=== PATIENT | female | born 1945 | race Caucasian/White ===

== ENCOUNTER 2016-10-27 18:12 | Emergency (ER) | payer OTHER ==
[~2016-10-27 18:12] MED LIST: ALPRAZOLAM0.5 MG PO; ASPIRIN ADULT L81 MG PO; AZASAN75 MG PO; CARVEDILOL6.25 MG PO; FLONASE AL50 MCG/ACT IN; ISOSORBIDE MONO30 MG PO; METFORMIN HCL500 MG PO; NICOTINE T14 MG/24 H TOP; NORCO1 TA1 PO; PRAVASTATIN SOD10 MG PO; PREDNISONE5 MG PO; PRINIVIL5 MG PO; TACROLIMUS0.5 MG PO
--- NOTE | 2016-10-27 19:42 | DIAGNOSTIC IMAGING REPORT ---
PROCEDURE: CT HEAD WITHOUT CONTRAST INDICATION: SYNCOPE TECHNIQUE: Axial CT images were acquired through the head. Coronal and sagittal reformations were created. COMPARISON: 09/14/2014 FINDINGS: Minor, age appropriate cerebral cortical atrophy. Mild hypodensity in the periventricular and subcortical white matter, slightly progressed. Slight prominence of the ventricular system, stable. No intracranial hemorrhage or extraaxial fluid collections. There is no mass, mass effect or midline shift. The gasca-white matter differentiation is normal. There is no edema. Moderate calcific atherosclerosis of the intracranial internal carotid arteries. The calvarium is intact. The paranasal sinuses and mastoid air cells are normally aerated. The extracranial soft tissues and orbits are normal. IMPRESSION: 1. No CT evidence of acute intracranial process. 2. Age related involutional and white matter changes. These changes have mildly progressed since the previous study. 3. Findings discussed with Dr. Bass at [address] scans at this facility use dose modulation, iterative reconstruction, and/or weight-based dosing when appropriate to reduce radiation dose to as low as reasonably achievable.
--- NOTE | 2016-10-27 19:44 | DIAGNOSTIC IMAGING REPORT ---
PROCEDURE: XR CHEST 1 VIEW INDICATION: CHEST PAIN TECHNIQUE: Single view chest. 1918 hours. COMPARISON: 07/08/2016 FINDINGS: Stable heart size, within normal limits. Heavy aortic arch atherosclerosis. No central venous congestion. Clear lungs. Parenchymal stranding in the right lower lung, similar compared to the prior study. No new consolidations, effusion, or pneumothorax. Intact osseous structures. IMPRESSION: 1. Atelectasis/scarring at the right medial lung base. 2. Stable heart size without acute findings of CHF.
--- NOTE | 2016-10-27 21:32 | ED NURSING NOTES ---
Clinical Report - Nurses [facility] [address] [place] [address] 10/27/2016 18:13 [id number] Triage time 18:23 Oct 27 2016. Acuity: LEVEL 3. Alert. SIMI COMA SCORE: Simi Coma Scale: 15- eyes open spontaneously (4); best verbal response- oriented x 4 (5); best motor response- obeys commands (6). --18:24 Yao Knapp R.N. 18:23 10/27/16. BP: 160/101. HR: 90. RR: 16. O2 saturation: 99% on room air. Temp: 98.2 F. Pain level now: 0/10. --18:24 Yao Knapp R.N. Acuity: LEVEL 3. Chief Complaint: FAINTING (HBP). --18:32 Yao Knapp R.N. 18:29 10/27/16. BP: 173/93. HR: 88. RR: 16. O2 saturation: 99% on room air. Temp: 98.1 F. Pain level now: 0/10. --18:32 Yao Knapp R.N. Weight: 51.2 kg stated. Height/Length: 63 inches Per Patient. BMI: 20. --18:24 Yao Knapp R.N. Medications ALPRAZolam Oral 0.5 mg, 3x a day as needed. Aspirin Oral (Tablet Chewable 81 mg) 1 tablet, daily. AzaTHIOprine Oral (Tablet 50 mg) 1-1/2 tablets, daily. AzaTHIOprine Oral (Tablet 75 mg), daily. Carvedilol Phosphate ER Oral 6.25 mg. Hydrocodone-Acetaminophen Oral 5 mg, 4x a day as needed. Lisinopril Oral 5 mg, daily. Pravastatin Sodium Oral 10 mg, at bedtime. PredniSONE Oral 5 mg, daily. Tacrolimus Oral (Capsule 0.5 mg) 1 capsule, BID. --18:28 Yao Knapp R.N. Allergies PCN. Definite Severe(swelling) --18:28 Yao Knapp R.N. History Arrived by private vehicle. Historian: patient. Accompanied by daughter. Primary physician (Luis). ( HBP 190/130 at home today. Pt got out of chair and collapsed on the floor.). Onset. (about 1 1/2 hours ago hours ago). She has had weakness. 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 PAST MEDICAL HX: Type II diabetes mellitus treated with diet. Hypertension. Heart disease: myocardial infarction. Immunizations: status is unknown. The patient is post-menopausal. SOCIAL HX: Former smoker, end date 09/2016. No alcohol use or drug use. No infectious disease exposure. ABUSE ASSESSMENT: No report of abuse. FALL RISK ASSESSMENT: Fall risk assessment completed. No fall risk identified. NUTRITIONAL RISK ASSESSMENT: The nutritional risk assessment revealed no deficiencies. FUNCTIONAL ASSESSMENT: Functional assessment: no impairments noted. LEARNING NEEDS ASSESSMENT: The learning needs assessment revealed no barriers. SKIN INTEGRITY ASSESSMENT: Skin integrity risk assessment completed. No skin integrity risk identified. --18:32 Yao Knapp R.N. PROBLEMS: Abnormal Test. Pneumonia. Congestive Heart Failure. Hypertension. Renal Failure. Diabetes Mellitus. UTI - Urinary Tract Infection. Immunizations. Borderline diabetes. --18:28 Yao Knapp R.N. ADDITIONAL SURGERIES: Appendectomy. Cholecystectomy. Renal transplant. --18:28 Yao Knapp R.N. Interventions ID band on patient. To treatment room. --18:24 Yao Knapp R.N. ID band on patient. To room. --18:32 Yao Knapp R.N. PHYSICAL ASSESSMENT Ambulatory to room. GENERAL / NEURO / PSYCH: Alert. Oriented X 4. HEENT: No facial asymmetry noted. RESPIRATORY: Chest nontender. Breath sounds within normal limits. CVS: Normal sinus rhythm noted. Capillary refill less than 2 seconds. Pulses within normal limits. GI / : Abdomen soft and nontender. SKIN: Skin intact. Skin is warm and dry. Normal skin turgor. --18:33 Yao Knapp R.N. NURSING PROGRESS NOTES Patient gowned. Reassurance given. Patient identifiers checked. Call light placed in reach. Side rails up x 1. Bed placed in lowest position. Brakes of bed on. Patient ready for evaluation- chart flagged and ED physician notified. --18:33 Yao Knapp R.N. EKG time: (18:46 PM). EKG was performed by a tech and shown to the ED physician. --18:55 Regan Doyle 19:49 10/27/2016 Site #1 started via IV in the right forearm with an 20g angiocath, with aseptic technique and good blood return; one attempt. Blood drawn: rainbow set. Labeled in the presence of the patient and sent to the lab. Saline lock flushed with 10 mL saline. --20:04 Yao Knapp R.N. 20:05 10/27/2016 Started bag #1 1000 mL IV Fluids IV NS (Saline); at 1000 mL/hr over 60 minute(s) via site #1 via IV pump. Allergies verified and confirmed 5 rights. IV patency established. IV site checked: no pain, redness, or swelling. IV flushed thoroughly pre- and post-medication administration. --20:06 Yao Knapp R.N. 20:15 10/27/16. Patient ID band checked for patient name, birthdate and medical record number: patient confirmed. Instructions provided to collect clean catch urine and patient verbalized understanding. Clean catch urine collected with return of yellow-colored clear urine; odor is normal; sample sent to lab for urinalysis and culture. Specimen labeled in the presence of the patient. --20:22 Yao Knapp R.N. 21:12 10/27/2016 IV Fluids IV NS Discontinued: bag #1 completed. Total amount infused: 1000 mL. IV patency established. IV site checked: no pain, redness, or swelling. IV flushed thoroughly. --21:12 Almita Zazueta R.N. Cardiac rhythm: normal sinus rhythm. Reassurance given. --21:22 Almita Zazueta R.N. 21:21 10/27/16. BP: 130/98. HR: 86. RR: 19. O2 saturation: 95%. Pain level now: 0/10. --21:22 Almita Zazueta R.N. DISPOSITION / DISCHARGE 21:47 10/27/2016 Site #1 removed upon discharge. Catheter intact. Manual pressure applied. --21:47 Almita Zazueta R.N. Cardiac rhythm: normal sinus rhythm. Departure time: 2148 PM. Condition at departure: improved and stable. The goals identified in the patient's plan of care were met. No learning barriers present. Discharge instructions provided and reviewed with the patient. Patient and family verbalized understanding. Written instructions provided in Maltese. No medication instructions, treatment instructions or referrals given to the patient. The patient was discharged by the physician. She was discharged home and accompanied by family. She left the Emergency Department in a wheelchair and via private vehicle. Family member driving. SIMI COMA SCORE: [place] Coma Scale: 15- eyes open spontaneously (4); best verbal response- oriented x 4 (5); best motor response- obeys commands (6). --21:48 Almita Zazueta R.N. 21:42 10/27/16. BP: 156/66. HR: 82. RR: 15. O2 saturation: 99% on room air. Temp: 97.6 F (oral). Pain level now: 0/10. --21:48 Almita Zazueta R.N. Locked/Released at 10/27/2016 21:48 by Almita Zazueta R.N.
--- NOTE | 2016-10-27 21:32 | ED CLINICAL REPORT ---
Clinical Report - Physicians/Mid Levels [facility] [address] [place] [address] 10/27/2016 18:13 Patient: TONI SANTA Time Seen: 18:34; initial patient contact. Arrived- By private vehicle. Historian- patient. HISTORY OF PRESENT ILLNESS The patient recovered at the scene. Chief Complaint: SINGLE SYNCOPAL EPISODE. This occurred just prior to arrival. Event was not witnessed. The patient felt faint. No seizure activity, incontinence or apnea noted. At time of event, she had just stood up. The patient had preceding symptoms of light-headedness. Had a single episode. The episode was brief. Currently she has no symptoms. No injuries noted. Similar symptoms previously: None. Recent medical care: Not recently seen/assessed. REVIEW OF SYSTEMS No headache, chest pain, palpitations, abdominal pain or vomiting. No diarrhea or difficulty breathing. She has had dizziness. All systems otherwise negative, except as recorded above. PAST HISTORY ( Abnormal Test. Pneumonia. Congestive Heart Failure. Hypertension. Renal Failure. Diabetes Mellitus. UTI - Urinary Tract Infection. Borderline diabetes. SURGERIES: Appendectomy. Cholecystectomy. Renal transplant.). SOCIAL HISTORY Former smoker. No alcohol use or drug use. ADDITIONAL NOTES The nursing notes have been reviewed with agreement regarding the chief complaint, PMH and patient medications and allergies. PHYSICAL EXAM Vital Signs: 10/27/2016 18:23 BP: 160/101. HR: 90. RR: 16. O2 saturation: 99%. Temp: 98.2 F. Pain level now: 0/10. Have been reviewed. Hypertensive. Heart rate normal. Respiratory rate normal. Temperature normal. Oxygen saturation normal. Appearance: Alert. No acute distress. Eyes: Pupils equal, round and reactive to light. No nystagmus. Extraocular movements normal. ENT: Dry mucous membranes present. Neck: Normal inspection. Neck supple. CVS: Normal heart rate and rhythm. Heart sounds normal. Respiratory: No respiratory distress. Breath sounds normal. Abdomen: Soft and nontender. No organomegaly. Skin: Poor skin turgor, mild. Skin warm and dry. Normal skin color. No rash. Extremities: No calf tenderness. No lower extremity edema. Neuro: Alert. Oriented X 3. Mood/affect normal. Speech normal. Cranial nerves normal (as tested). No cerebellar findings. No motor deficit. No sensory deficit. LABS, X-RAYS, AND EKG EKG: EKG time: (1845). No acute process. No acute ischemia. Normal sinus rhythm. Rate: 82. Normal P waves. Normal MARLEEN. Normal QRS complex. Wide QRS- intraventricular conduction delay. RBBB (incomplete). Normal QT and QTc. Mild T wave inversion in lead V5 and V6. The study has been interpreted contemporaneously by me. The study has been independently viewed by me. The EKG appears to be a good tracing. Interpretation time: 1845. Chest X-ray: (1. Atelectasis/scarring at the right medial lung base. 2. Stable heart size without acute findings of CHF.). Views: AP. Technique: good. The X-rays were independently viewed by me, interpreted by the radiologist and discussed with the radiologist. A comparison with prior films reveals that the findings are unchanged. Interpretation time: 20:19. Laboratory Tests: CBC w Diff: (QUINCY: 10/27/2016 18:45) ( MsgRcvd 10/27/2016 19:10) Final results Test Result Flag Units (Reference) WHITE BLOOD COUNT 7.0 K/uL (4.5-11.5) RED BLOOD COUNT 3.81 L M/uL (4.00-5.20) HEMOGLOBIN 12.1 gm/dL (12.0-16.0) HEMATOCRIT 36.1 % (36.0-46.0) MEAN CELL VOLUME 95 fL (80-100) MEAN CORPUSCULAR HGB 32 pg (26-34) MEAN CORPUSCULAR HGB CONC 33 g/dL (31-37) RED CELL DISTRIBUTION WIDTH 14.2 % (11.6-14.8) PLATELET COUNT 225 K/uL (150-400) NEUTROPHIL % 66.9 % (50-75) LYMPH % 22.4 L % (25-40) MONO % 8.8 % (3-14) EOSINOPHIL % 1.5 % (0-4) BASOPHIL % 0.4 % (0-2) CHEM 13 PANEL: (QUINCY: 10/27/2016 18:45) ( MsgRcvd 10/27/2016 19:30) Final results Test Result Flag Units (Reference) GLUCOSE 120 H mg/dL (70-110) BUN 24 H mg/dL (7-18) CREATININE 1.1 mg/dL (0.6-1.3) Estimated GFR 51.75 mL/min Estimated GFR- >60 mL/min Note: Persistent reduction over 3 months in eGFR<60 mL/min/1.73 m2 defines CKD. Patients with eGFR values>=60 mL/min/1.73 m2 may also have CKD if evidence ofpersistent proteinuria. Additional information may be foundat www.kidney.org. SODIUM 141 mmol/L (136-145) POTASSIUM 4.4 mmol/L (3.5-5.1) CHLORIDE 105 mmol/L (98-107) CARBON DIOXIDE 29 mmol/L (21-32) CALCIUM 9.2 mg/dL (8.5-10.1) TOTAL PROTEIN 7.4 g/dL (6.4-8.2) ALBUMIN 3.7 g/dL (3.3-5.0) BILIRUBIN, TOTAL 0.4 mg/dL (0.0-1.0) ALKALINE PHOSPHATASE 60 U/L (46-116) AST (SGOT) 11 L U/L (15-37) ALT (SGPT) 9 L U/L (12-78) MAGNESIUM 2.1 mg/dL (1.8-2.4) CPK 59 U/L (24-260) TROPONIN I <0.05 ng/mL (0.00-1.5) TROPONIN REFERENCE RANGE:<0.1 NEGATIVE0.1-1.5 INDETERMINANT>1.5 POSITIVE . PROGRESS AND PROCEDURES Course of Care: Nl renal fxn. Expressed the improtance of adequate hydration to keep kidneys functioning properly, especially due to the fact she has undergone a renal transplant. 10/27/2016 21:21 BP: 130/98. HR: 86. RR: 19. O2 saturation: 95%. Pain level now: 0/10. Vital Signs: have been reviewed. Hypertensive. Heart rate normal. Respiratory rate normal. Oxygen saturation normal. Disposition: Discharged home in good and improved condition. Condition: good. CLINICAL IMPRESSION Vasovagal syncope .12 lead EKG performed. INSTRUCTIONS Follow a low salt diet. Drink plenty of fluids. Your Current Medications: CONTINUE TAKING THE FOLLOWING MEDICATIONS: ALPRAZolam Oral : 0.5 mg 3x a day, prn. Aspirin Oral : Tablet Chewable 81 mg, 1 tablet daily. AzaTHIOprine Oral : Tablet 50 mg, 1-1/2 tablets daily. AzaTHIOprine Oral : Tablet 75 mg, daily. Carvedilol Phosphate ER Oral : 6.25 mg. Hydrocodone-Acetaminophen Oral : 5 mg 4x a day, prn. Lisinopril Oral : 5 mg daily. Pravastatin Sodium Oral : 10 mg at bedtime. PredniSONE Oral : 5 mg daily. Tacrolimus Oral : Capsule 0.5 mg, 1 capsule BID. Follow-up: Follow up with your doctor in about two days. Call for an appointment. Blood pressure screening was not performed during this visit because the patient has an active diagnosis of hypertension. (Electronically signed by Tomas Bass Dr. 10/28/2016 20:55)
--- NOTE | 2016-10-27 21:32 | ED ORDER SUMMARY ---
..... Patient: TONI SANTA OrderSheet [facility] VisitID: [id number] [place] [address] 71y, F Registration Date/Time: 10/27/2016 ORDER SHEET Weight: 51.2 kg (stated) Allergies: PCN GENERAL ORDERS: Ships Equipment Engineer (Continuous) (Syncopal Epidsode) (18:34 10/27/2016 JRomanelli R.N. verbal order read back to Marguerite Monterroso) (20:04 JRomanelli R.N.) CMP Urgent (18:35 10/27/2016 JRaaronelli R.N. verbal order read back to Marguerite Monterroso) (Ack 18:42 Viji) (18:43 JRomanelli R.N.) (Cancelled: Other18:44 JRomanelli R.N.) Pulse oximeter (18:35 10/27/2016 Kacy R.N. verbal order read back to Marguerite Monterroso) (20:04 JRomanelli R.N.) EKG - ER Stat (18:35 10/27/2016 Kacy R.N. verbal order read back to Marguerite Monterroso) (Ack 18:42 Viji) (19:12 LTapper) Cardiac Panel Stat (18:44 10/27/2016 Josieelli R.N. verbal order read back to Marguerite Monterroso) (Ack 18:54 Viji) (20:04 JRomanelli R.N.) Chest 1V Urgent (19:10 10/27/2016 Marguerite Monterroso) (Ack 19:14 Viji) (19:30 MCampbell) CT Head wo Cont Urgent (19:10 10/27/2016 Marguerite Monterroso) (Ack 19:14 Viji) (19:30 MCampbell) UA-Culture if indicated Urgent (19:10 10/27/2016 Marguerite Monterroso) (Ack 19:14 Viji) (20:04 JRomanelli R.N.) MEDICATION ORDERS: IV FLUIDS: IV Saline Lock (18:35 10/27/2016 Kacy R.N. verbal order read back to Marguerite Monterroso) (20:04 Kacy Chou) IV NS : initial bolus none -, then 1000 mL/hr for X1 (NOW) (19:31 10/27/2016 Marguerite Monterroso) (20:06 Kacy Chou) ORDER SHEET NOTES: [Electronically signed by Almita Zazueta R.N. (21:48 10/27/2016)] [Electronically signed by Tomas Bass Dr. (20:55 10/28/2016)] [Electronically locked/signed by Almita Zazueta R.N. (21:48 10/27/2016)]
--- NOTE | 2016-10-27 21:32 | ED ORDER SUMMARY ---
..... Patient: TONI SANTA OrderSheet [facility] VisitID: [id number] [place] [address] 71y, F Registration Date/Time: 10/27/2016 ORDER SHEET Weight: 51.2 kg (stated) Allergies: PCN GENERAL ORDERS: Addressograph Operator (Continuous) (Syncopal Epidsode) (18:34 10/27/2016 JRomanelli R.N. verbal order read back to Marguerite Monterroso) (20:04 JRomanelli R.N.) CMP Urgent (18:35 10/27/2016 JRaaronelli R.N. verbal order read back to Marguerite Monterroso) (Ack 18:42 Viji) (18:43 JRomanelli R.N.) (Cancelled: Other18:44 JRomanelli R.N.) Pulse oximeter (18:35 10/27/2016 Kacy R.N. verbal order read back to Marguerite Monterroso) (20:04 JRomanelli R.N.) EKG - ER Stat (18:35 10/27/2016 Kacy R.N. verbal order read back to Marguerite Monterroso) (Ack 18:42 Viji) (19:12 LTapper) Cardiac Panel Stat (18:44 10/27/2016 Josieelli R.N. verbal order read back to Marguerite Monterroso) (Ack 18:54 Viji) (20:04 JRomanelli R.N.) Chest 1V Urgent (19:10 10/27/2016 Marguerite Monterroso) (Ack 19:14 Viji) (19:30 MCampbell) CT Head wo Cont Urgent (19:10 10/27/2016 Marguerite Monterroso) (Ack 19:14 Viji) (19:30 MCampbell) UA-Culture if indicated Urgent (19:10 10/27/2016 Marguerite Monterroso) (Ack 19:14 Viji) (20:04 JRomanelli R.N.) MEDICATION ORDERS: IV FLUIDS: IV Saline Lock (18:35 10/27/2016 Kacy R.N. verbal order read back to Marguerite Monterroso) (20:04 Kacy Chou) IV NS : initial bolus none -, then 1000 mL/hr for X1 (NOW) (19:31 10/27/2016 Marguerite Monterroso) (20:06 Kacy Chou) ORDER SHEET NOTES: [Electronically signed by Almita Zazueta R.N. (21:48 10/27/2016)] [Electronically signed by Tomas Bass Dr. (20:55 10/28/2016)] [Electronically locked/signed by Almita Zazueta R.N. (21:48 10/27/2016)]
--- NOTE | 2016-10-28 20:55 | ED MED RECONCILIATION SUMMARY ---
Patient: TONI SANTA Medication Reconciliation Report [facility] VisitID: [id number] [address] [place] [address] 71y, F Registration Date/Time: 10/27/2016 Weight: 51.2 kg Height/Length: 63 in. BMI: 20.0 ALLERGIES: PCN The patient's Home Medications are listed below: CONTINUE TAKING THE FOLLOWING MEDICATIONS: ALPRAZolam Oral 0.5 mg, 3x a day Aspirin Oral (81 mg) 1 tablet, daily AzaTHIOprine Oral (50 mg) 1-1/2 tablets, daily AzaTHIOprine Oral (75 mg), daily Carvedilol Phosphate ER Oral 6.25 mg Hydrocodone-Acetaminophen Oral 5 mg, 4x a day Lisinopril Oral 5 mg, daily Pravastatin Sodium Oral 10 mg, at bedtime PredniSONE Oral 5 mg, daily Tacrolimus Oral (0.5 mg) 1 capsule, BID The source(s) of the original Home Medication information: Not obtained. The following Medications were given to the patient in the Emergency Department: IV NS IV Fluids bolus 0, then 1000 mL/hr, administered: 10/27/2016 8:05:00 PM The following Medications were prescribed to the patient: None.
--- NOTE | 2016-10-28 20:55 | ED DISCHARGE INSTRUCTIONS ---
Patient: TONI SANTA General Instructions [facility] VisitID: [id number] [place] [address] 71y, F Registration Date/Time: 10/27/2016 Vasovagal syncope .12 lead EKG performed. INSTRUCTIONS Follow a low salt diet. Drink plenty of fluids. Your Current Medications: CONTINUE TAKING THE FOLLOWING MEDICATIONS: ALPRAZolam Oral : 0.5 mg 3x a day, prn. Aspirin Oral : Tablet Chewable 81 mg, 1 tablet daily. AzaTHIOprine Oral : Tablet 50 mg, 1-1/2 tablets daily. AzaTHIOprine Oral : Tablet 75 mg, daily. Carvedilol Phosphate ER Oral : 6.25 mg. Hydrocodone-Acetaminophen Oral : 5 mg 4x a day, prn. Lisinopril Oral : 5 mg daily. Pravastatin Sodium Oral : 10 mg at bedtime. PredniSONE Oral : 5 mg daily. Tacrolimus Oral : Capsule 0.5 mg, 1 capsule BID. Follow-up: Follow up with your doctor in about two days. Call for an appointment. Blood pressure screening was not performed during this visit because the patient has an active diagnosis of hypertension. ADDITIONAL INFORMATION Fainting:Vagal Reaction Fainting (syncope) is a temporary loss of consciousness ("passing out"). It occurs when blood flow to the brain is reduced. Your doctor believes that your episode was due to a vagal reaction. This condition is not a sign of serious disease. A vagal reaction is a reflex response that causes the pulse to slow down or the blood vessels to dilate. This causes the blood pressure to fall, reducing the blood flow to the brain if you are standing or sitting. That results in dizziness, near-fainting or fainting. Lying down usually stops the reaction within 60 seconds. This reflex response can occur during sudden fear, severe pain, emotional stress, overexertion, overheating, hunger, nausea or vomiting, prolonged standing or standing up after sitting or lying for a long time. Home Care: 1) Rest today and resume your normal activities as soon as you are feeling back to normal. 2) If you become light-headed or dizzy, lie down immediately or sit with your head lowered between your knees. Follow Up with your doctor as instructed. Get Prompt Medical Attention if any of the following occur: -- Another fainting spell occurs, which is not explained by the common causes listed above -- Chest, arm, neck, jaw, back or abdominal pain -- Shortness of breath -- Severe headache or seizure -- Blood in vomit, stools (black or red color) -- Unexpected vaginal bleeding -- Palpitations (very rapid or very slow or irregular heart beat) -- Signs of stroke: Weakness of an arm or leg or one side of the face Difficulty with speech or vision Extreme drowsiness, confusion, dizziness or fainting Low-Salt Diet (2 Grams/Day) This diet eliminates foods that are high in salt and restricts the amount of salt that you cook with. It is most often used for patients with high blood pressure, edema (fluid retention), kidney, liver, and heart disease. Table salt contains the mineral sodium. The body needs sodium to work normally. But too much sodium can make your health problems worse. Your healthcare provider is recommending a low-salt (also called low-sodium) diet for you. Your total daily allowance of salt (sodium) is 2 grams. This equals 2,000 milligrams (mg). It is less than 1 teaspoon of table salt. This means you can have only about 700 mg of sodium at each meal. When you cook, limit the salt you use. And if you can avoid using salt, even better. Do not add salt at the table. So, throw away the saltshaker! When shopping, read the package labels. Salt is often called sodium on the label. Choose foods that are Salt-Free, Low Salt, or Very Low Salt. Note that foods with Reduced Salt may notlower your salt intake enough. Beverages OK: Tea, coffee, carbonated beverages, juices AVOID: Flavored international coffees, electrolyte replacement drinks, sports beverages Bread & Cereals OK: All regular bread, rolls, cereals, cakes; low-salt crackers, matzoh crackers AVOID: Salted crackers, pretzels, popcorn; venezuelan toast, pancakes, muffins Fruits & Desserts OK: Ice cream, frozen yogurt, juice bars, gelatin (Jell-O), cookies and pies, sugar, honey, jelly, hard candy AVOID: Most pies, cakes and cookies prepared or processed with salt, instant pudding Meats OK: All fresh meat, fish, poultry, low-salt tuna AVOID: Smoked, pickled, brine-cured, or salted meats or fish. Thisincludes mccracken, chipped beef, corned beef, hot dogs, luncheon meats, ham, kosher meats, salt pork, sausage, canned tuna, salted codfish, smokedsalmon, rivers, sardines, or anchovies. Dairy OK: Milk, chocolate milk, hot chocolate mix; eggs, Low Salt cheeses, yogurt, egg substitute AVOID: Processed cheese, cheese spreads, Roquefort, Camembert, and cottage cheese, buttermilk, instant breakfast drink Beans, Potatoes & Pasta OK: Dry beans, split peas, lentils, potatoes, rice, macaroni, noodles, spaghetti without added salt AVOID: Potato chips, tortilla chips, and similar products Soups OK: Low-salt soups and broths made with allowed foods AVOID: Bouillon cubes, soups with smoked or salted meats, regular soup and broth Vegetables OK: Most are okay; low-salt tomato and vegetable juices AVOID: Sauerkraut and other brine-soaked vegetables, pickles and other pickled vegetables, tomato juice, olives Seasoning & Spices OK: Most seasonings are okay. Good substitutes for salt include: fresh herb blends, Tabasco, lemon, garlic, peters, vinegar, dry mustard, parsley, cilantro, horseradish, tomato paste, regular margarine, mayonnaise, butter, cream cheese, vegetable oil, cream, low-salt salad dressing and gravy AVOID: Regular ketchup, relishes, pickles, soy sauce, teriyaki sauce, Worcestershire sauce, BBQ sauce, tartar sauce, meat tenderizer, chili sauce, regular gravy, regular salad dressing You have been given the following additional information: Syncope, Vasovagal Diet, Low Salt (2Gm) (Electronically signed by Tomas Bass Dr. 10/28/2016 20:55)
--- NOTE | 2016-10-28 20:55 | ED MAR SUMMARY ---
..... Medication Administration Record [facility] [address] [place] [address] Patient: TONI SANTA Visit ID: [id number] 71y, F Weight: 51.2 kg Height/Length: 63 in BMI: 20 ALLERGIES: PCN Start 20:05 10/27/2016 Yao Knapp RAugustNAugust, Stop 21:12 10/27/2016 Almita Zazueta RAugustNAugust Medication Administered: IV NS (SALINE), Dose: IV Fluids over 60 minute(s), Rate: 1000 mL/hr, Dispensed: 1000 mL bag, Site: #1 right forearm. Medication Ordered: IV NS : initial bolus none -, then 1000 mL/hr for X1 (NOW).
--- NOTE | 2016-10-28 20:55 | ED MAR SUMMARY ---
..... Medication Administration Record [facility] [address] [place] [address] Patient: TONI SANTA Visit ID: [id number] 71y, F Weight: 51.2 kg Height/Length: 63 in BMI: 20 ALLERGIES: PCN Start 20:05 10/27/2016 Yao Knapp RAugustNAugust, Stop 21:12 10/27/2016 Almita Zazueta RAugustNAugust Medication Administered: IV NS (SALINE), Dose: IV Fluids over 60 minute(s), Rate: 1000 mL/hr, Dispensed: 1000 mL bag, Site: #1 right forearm. Medication Ordered: IV NS : initial bolus none -, then 1000 mL/hr for X1 (NOW).
--- NOTE | 2016-10-28 20:55 | ED MED RECONCILIATION SUMMARY ---
Patient: TONI SANTA Medication Reconciliation Report [facility] VisitID: [id number] [address] [place] [address] 71y, F Registration Date/Time: 10/27/2016 Weight: 51.2 kg Height/Length: 63 in. BMI: 20.0 ALLERGIES: PCN The patient's Home Medications are listed below: CONTINUE TAKING THE FOLLOWING MEDICATIONS: ALPRAZolam Oral 0.5 mg, 3x a day Aspirin Oral (81 mg) 1 tablet, daily AzaTHIOprine Oral (50 mg) 1-1/2 tablets, daily AzaTHIOprine Oral (75 mg), daily Carvedilol Phosphate ER Oral 6.25 mg Hydrocodone-Acetaminophen Oral 5 mg, 4x a day Lisinopril Oral 5 mg, daily Pravastatin Sodium Oral 10 mg, at bedtime PredniSONE Oral 5 mg, daily Tacrolimus Oral (0.5 mg) 1 capsule, BID The source(s) of the original Home Medication information: Not obtained. The following Medications were given to the patient in the Emergency Department: IV NS IV Fluids bolus 0, then 1000 mL/hr, administered: 10/27/2016 8:05:00 PM The following Medications were prescribed to the patient: None.
== END 2016-10-27 21:40 | disposition home or self-care (01) ==
LOC: ED SRH 18:12
DX: R55 Syncope and collapse (principal); E11.22 Type 2 diabetes mellitus with diabetic chronic kidney disease; N18.9 Chronic kidney disease, unspecified; I12.9 Hypertensive chronic kidney disease with stage 1 through stage 4 chronic kidney disease, or unspecified chronic kidney disease; Z94.0 Kidney transplant status; I50.9 Heart failure, unspecified; Z79.82 Long term (current) use of aspirin; Z79.891 Long term (current) use of opiate analgesic; Z79.52 Long term (current) use of systemic steroids; Z79.899 Other long term (current) drug therapy; Z88.0 Allergy status to penicillin
CPT/HCPCS: 90004; 90100; 90616; 92610; 92720; 95059

== ENCOUNTER 2016-11-01 20:28 | Inpatient (IN) | payer OTHER ==
[~2016-11-01] VITALS: Ht 160 cm; Wt 53.2 kg
--- NOTE | 2016-11-01 22:15 | ED CLINICAL REPORT ---
Clinical Report - Physicians/Mid Levels [facility] [address] [place] [address] 11/01/2016 20:32 Patient: TONI SANTA Time Seen: 20:39; initial patient contact. Arrived- By ambulance. Historian- patient and EMS personnel. CPT: Critical care < 74 min plus (#[id number]) and 30-74 min plus (#[id number]). EKG interpretation (#[id number]). HISTORY OF PRESENT ILLNESS Chief Complaint: DYSPNEA and HISTORY OF CONGESTIVE HEART FAILURE. This started today and is still present. The dyspnea is severe and is worsened by exertion, is improved by rest and is improved with oxygen. No cough, sputum production, fever or chest pain or discomfort. No calf pain or foot swelling. She has had wheezing, dyspnea on exertion and anxiety. Similar symptoms previously: Milder. Diagnosis: bronchitis. Recent medical care: Not recently seen/assessed. REVIEW OF SYSTEMS The patient has had weakness, but not had weight loss. No eye irritation, sore throat or throat, nasal discharge or sinus drainage. No nausea, vomiting, abdominal pain, diarrhea or black stools. No fainting episodes, difficulty with urination or urination or skin rash or rash. No enlarged lymph nodes, hematuria, diabetic symptoms or easy bruising. All systems otherwise negative, except as recorded above. PAST HISTORY Vasovagal Syncope. Heart Disease. Pneumonia. Congestive Heart Failure. Hypertension. Renal Failure. Diabetes Mellitus. UTI - Urinary Tract Infection. Borderline diabetes. Appendectomy. AV Fistula, Left Arm. Cholecystectomy. Renal transplant. Medications: ALPRAZolam Oral 0.5 mg, 3x a day as needed. Aspirin Oral (Tablet Chewable 81 mg) 1 tablet, daily. AzaTHIOprine Oral (Tablet 50 mg) 1-1/2 tablets, daily. AzaTHIOprine Oral (Tablet 75 mg), daily. Carvedilol Phosphate ER Oral 6.25 mg. Hydrocodone-Acetaminophen Oral 5 mg, 4x a day as needed. Lisinopril Oral 5 mg, daily. Pravastatin Sodium Oral 10 mg, at bedtime. PredniSONE Oral 5 mg, daily. Tacrolimus Oral (Capsule 0.5 mg) 1 capsule, BID. Allergies: PCN. Definite Severe(swelling). SOCIAL HISTORY Former smoker. No alcohol use or drug use. ADDITIONAL NOTES The nursing notes have been reviewed. PHYSICAL EXAM Vital Signs: 11/01/2016 20:37 BP: 226/147. HR: 122. RR: 24. O2 saturation: 100%. Temp: 97.5 F. Figueroa-Harrell pain scale: 4/10. Appearance: Alert. Anxious. Patient in moderate distress. Eyes: Eyes normal inspection. ENT: Nose normal. Pharynx normal. Uvula midline. Neck: Normal inspection. JVD to the angle of the jaw present at 45 degrees. Neck supple. CVS: Tachycardia. Heart sounds normal. Pulses normal. Respiratory: Moderate respiratory distress (On CPAP). Decreased air movement. Moderate rales present in the bases bilaterally. Abdomen: Soft and nontender. Back: Normal inspection. Skin: Skin warm. Normal skin color. No rash. Extremities: Extremities exhibit normal ROM. No calf tenderness. No lower extremity edema. Neuro: Oriented X 3. No motor deficit. No sensory deficit. Reflexes normal. LABS, X-RAYS, AND EKG EKG: Normal sinus rhythm. Normal P waves. Normal QRS complex. Non-specific ST segment / T wave abnormalities. EKG unchanged when compared with prior EKG. The study has been interpreted contemporaneously. The study has been independently viewed by me. The EKG appears to be a good tracing. Chest X-ray: Congestive heart failure present. Pulmonary edema present. Vascular congestion present. Views: AP (portable). Technique: good. The X-rays were independently viewed by me. Laboratory Tests: CBC w Manual Diff: (QUINCY: 11/02/2016 05:20) ( MsgRcvd 11/02/2016 06:19) Final results Test Result Flag Units (Reference) WHITE BLOOD COUNT NO REFLEX 10.1 K/uL (4.5-11.5) RED BLOOD COUNT 3.60 L M/uL (4.00-5.20) HEMOGLOBIN 11.3 L gm/dL (12.0-16.0) HEMATOCRIT 33.7 L % (36.0-46.0) MEAN CELL VOLUME 94 fL (80-100) MEAN CORPUSCULAR HGB 32 pg (26-34) MEAN CORPUSCULAR HGB CONC 34 g/dL (31-37) RED CELL DISTRIBUTION WIDTH 14.4 % (11.6-14.8) PLATELET COUNT 218 K/uL (150-400) POLY % 74 % (50-75) BAND % 6 % (0-8) LYMPH 17 L % (25-40) MONO 3 % (3-14) EOSINOPHIL % 0 % (0-4) BASOPHIL % 0 % (0-2) METAMYELOCYTE % 0 % (0-1) MYELOCYTE 0 % (0-1) OTHER CELL TYPE 0 HYPOCHROMIA 1+ [id number]: (QUINCY: 11/02/2016 05:20) ( [facility] 11/02/2016 06:03) Final results Test Result Flag Units (Reference) CHOLESTEROL 184 mg/dL (140-200) TRIGLYCERIDES 138 mg/dL (30-200) HDL CHOLESTEROL 63 mg/dL (32-96) LDL,CALCULATED 94 mg/dL Normal range for LDL by direct measurement is 66-178The LDL reported is a calculated value and may approximatea direct measurement. CHOL/HDL 2.9 LDL/HDL 1.5 CORONARY RISK FACTOR 0.5 (0.4-1.0) [id number]: (QUINCY: 11/02/2016 05:20) ( [facility] 11/02/2016 06:04) Final results Test Result Flag Units (Reference) CALCULATED A1C 6.3 H % (4.5-6.2) The [place] [employer] recommends that aprimary goal of therapy should be a HbA1c of <7% and thatphysicians should reevaluate the treatment regimen inpatients with HbA1c values consistently >8%. ESTIMATED AVERAGE GLUCOSE 134 mg/dL BNP: (QUINCY: 11/02/2016 05:20) ( [facility] 11/02/2016 06:12) Final results Test Result Flag Units (Reference) B-TYPE NATRIURETIC PEPTIDE 1870 H pg/ml (5-100) BMP: (QUINCY: 11/02/2016 05:20) ( MsgRcvd 11/02/2016 06:02) Final results Test Result Flag Units (Reference) GLUCOSE 93 mg/dL (70-110) BUN 29 H mg/dL (7-18) CREATININE 1.0 mg/dL (0.6-1.3) Estimated GFR 57.76 mL/min Estimated GFR- >60 mL/min Note: Persistent reduction over 3 months in eGFR<60 mL/min/1.73 m2 defines CKD. Patients with eGFR values>=60 mL/min/1.73 m2 may also have CKD if evidence ofpersistent proteinuria. Additional information may be foundat www.kidney.org. SODIUM 143 # mmol/L (136-145) POTASSIUM 3.7 # mmol/L (3.5-5.1) CHLORIDE 105 mmol/L (98-107) CARBON DIOXIDE 25 mmol/L (21-32) CALCIUM 8.9 mg/dL (8.5-10.1) Troponin-I: (QUINCY: 11/02/2016 05:20) ( [facility] 11/02/2016 06:02) Final results Test Result Flag Units (Reference) TROPONIN I 0.14 ng/mL (0.00-1.5) TROPONIN REFERENCE RANGE:<0.1 NEGATIVE0.1-1.5 INDETERMINANT>1.5 POSITIVE UA-Culture if indicated: (QUINCY: 11/01/2016 21:16) ( [facility] 11/01/2016 22:20) Final results Test Result Flag Units (Reference) URINE COLOR YELLOW URINE APPEARANCE CLEAR URINE GLUCOSE NEGATIVE (NEGATIVE) URINE BILIRUBIN NEGATIVE (NEGATIVE) URINE KETONE NEGATIVE (NEGATIVE) URINE SPECIFIC GRAVITY 1.015 (1.010-1.030) URINE PH 6.0 (5.0-8.0) URINE PROTEIN NEGATIVE (NEGATIVE) URINE UROBILINOGEN 0.2 EU/dL (0.2-1.0) URINE NITRITE NEGATIVE (NEGATIVE) URINE BLOOD NEGATIVE (NEGATIVE) URINE LEUK ESTERASE NEGATIVE (NEGATIVE) URINE RBC 0-1 rbc/hpf (0-1) URINE WBC 0-1 wbc/hpf (0-1) URINE EPITHELIAL CELLS 0-1 EPI/hpf (0-5) URINE BACTERIA NONE SEEN (NONE SEEN) URINE COMMENT CULT NOT INDICATED URINE CULTURES ARE SET-UP BASED ON THE FOLLOWING CRITERIA:POSITIVE NITRITEPOSITIVE LEUKOCYTE ESTERASEGREATER THAN 10 WHITE BLOOD CELLSMODERATE (2+) OR GREATER BACTERIA CBC w Diff: (QUINCY: 11/01/2016 20:50) ( [facility] 11/01/2016 21:07) Final results Test Result Flag Units (Reference) WHITE BLOOD COUNT 17.8 # H K/uL (4.5-11.5) RED BLOOD COUNT 4.00 M/uL (4.00-5.20) HEMOGLOBIN 12.6 gm/dL (12.0-16.0) HEMATOCRIT 38.4 % (36.0-46.0) MEAN CELL VOLUME 96 fL (80-100) MEAN CORPUSCULAR HGB 32 pg (26-34) MEAN CORPUSCULAR HGB CONC 33 g/dL (31-37) RED CELL DISTRIBUTION WIDTH 14.2 % (11.6-14.8) PLATELET COUNT 278 K/uL (150-400) NEUTROPHIL % 68.3 % (50-75) LYMPH % 26.5 % (25-40) MONO % 4.5 % (3-14) EOSINOPHIL % 0.4 % (0-4) BASOPHIL % 0.3 % (0-2) [id number]: (QUINCY: 11/01/2016 20:50) ( [facility] 11/01/2016 21:25) Final results Test Result Flag Units (Reference) D-DIMER QUANTITATIVE 3.37 H ug/mLFEU (0.27-0.52) The primary value of this quantitative assay relates toits negative predictive value (i.e. exclusion) of pulmonaryembolism/deep vein thrombosis/DIC.Elevated levels of d-dimer may also occur with:, age, cancer, inflammation, liver disease,post-op, infection, hematoma, coronary disease, peripheralarteriopathy, bleeding disorders and thrombolytic treatment.Results should be correlated with other clinical andradiological data.Testing Methodology: Latex Immunoassay Troponin-I: (QUINCY: 11/01/2016 23:30) ( [facility] 11/02/2016 00:01) Final results Test Result Flag Units (Reference) TROPONIN I 0.16 ng/mL (0.00-1.5) TROPONIN REFERENCE RANGE:<0.1 NEGATIVE0.1-1.5 INDETERMINANT>1.5 POSITIVE Lactate, Serum: (QUINCY: 11/01/2016 20:50) ( [facility] 11/01/2016 21:46) Final results Test Result Flag Units (Reference) LACTIC ACID 1.3 mmol/L (0.4-2.0) [id number]: (QUINCY: 11/01/2016 20:50) ( [facility] 11/01/2016 22:08) Final results Test Result Flag Units (Reference) PROCALCITONIN <0.5 ng/mL (0-0.5) PCT Concentration: Interpretation : Risk/option for action PCT <=0.5 ng/mL : Systemic : Low risk forinfection(sepsis): progression to severeis not likely. : systemic infection.Local bacterial : CAUTION-PCT levelsinfection is : below 0.5 ng/mL do notpossible. : exclude an infection,because localizedinfections (withoutsystemic signs) may beassociated with suchlow levels. If PCT ismeasured very earlyafter a bacterialchallenge (usually <6hours), these valuesmay still be low. Inthis case PCT shouldbe re-assessed 6-24hours later. PCT >0.5 and : Systemic infection: Moderate risk for<= 2 ng/mL : (sepsis) is : progression to severepossible, but : systemic infection.other conditions : The patient should beare known to : closely monitoredelevate PCT. : both clinically andby re-assessing PCTwithin 6-24 hours. PCT > 2 ng/mL : Systemic infection: High risk for(sepsis) is likely: progression to severeunless other : systemic infection.causes are known. : PCT >= 10 ng/mL : Important systemic: High likelihood ofinflammatory : severe sepsis orresponse, almost : septic shock.exclusively due to:severe bacterial :sepsis or septic :shock. : BNP: (QUINCY: 11/01/2016 20:50) ( MsgRcvd 11/01/2016 21:26) Final results Test Result Flag Units (Reference) B-TYPE NATRIURETIC PEPTIDE 1760 H pg/ml (5-100) CHEM 13 PANEL: (QUINCY: 11/01/2016 20:50) ( MsgRcvd 11/01/2016 21:22) Final results Test Result Flag Units (Reference) GLUCOSE 303 H mg/dL (70-110) BUN 33 H mg/dL (7-18) CREATININE 1.5 H mg/dL (0.6-1.3) Estimated GFR 36.18 mL/min Estimated GFR- 43.85 mL/min Note: Persistent reduction over 3 months in eGFR<60 mL/min/1.73 m2 defines CKD. Patients with eGFR values>=60 mL/min/1.73 m2 may also have CKD if evidence ofpersistent proteinuria. Additional information may be foundat www.kidney.org. SODIUM 134 L mmol/L (136-145) POTASSIUM 5.1 mmol/L (3.5-5.1) CHLORIDE 103 mmol/L (98-107) CARBON DIOXIDE 24 mmol/L (21-32) CALCIUM 8.7 mg/dL (8.5-10.1) TOTAL PROTEIN 7.6 g/dL (6.4-8.2) ALBUMIN 3.8 g/dL (3.3-5.0) BILIRUBIN, TOTAL 0.3 mg/dL (0.0-1.0) ALKALINE PHOSPHATASE 72 U/L (46-116) AST (SGOT) 16 U/L (15-37) ALT (SGPT) 17 U/L (12-78) MAGNESIUM 2.0 mg/dL (1.8-2.4) CPK 71 U/L (24-260) TROPONIN I <0.05 ng/mL (0.00-1.5) TROPONIN REFERENCE RANGE:<0.1 NEGATIVE0.1-1.5 INDETERMINANT>1.5 POSITIVE ABG: (QUINCY: 11/01/2016 21:28) ( MsgRcvd 11/01/2016 21:38) Final results Test Result Flag Units (Reference) FIO2 45 % (20-101) ABG MODE OF DELIVERY CPAP MODIFIED NELL TEST POSITIVE? YES ABG VENT MODE CPAP ABG PATIENT RESP RATE 20 /MIN ARTERIAL BLOOD GAS SITE RR ARTERIAL BLOOD GAS pH 7.27 L (7.35-7.45) ABG PCO2 54.7 H mmHg (35-45) ABG PO2 137.0 H mmHg (60.0-80.0) ABG BASE EXCESS -2.1 H mmol/L (-6.0--6.0) ABG HCO3 25.0 mmol/L (20.0-26.0) ABG TCO2 26.6 mmol/L (24.0-30.0) ABG VwMoN8c 123.2 H mmHg (7.0-14.0) *NOTE: Normal rangeis based on aFIO2 of 21% ABG SAT O2 99.2 % (95.1-100.0) ABG TOTAL HEMOGLOBIN 12.3 g/dL (12.0-16.0) ABG O2 HEMOGLOBIN 96.0 % (95.0-100.0) ABG CARBOXYHEMOGLOBIN 3.1 H % (0.5-1.5) ABG METHEMOGLOBIN 0.1 L % (0.4-1.5) ABG RHEMOGLOBIN 0.8 % . PROGRESS AND PROCEDURES Course of Care: Pt arrives on CPAP as EMS notes sat of 85% at the scene. Pt sat improved to 95% on CPAP. ABG shows respiratory failure and poor ventilation so pt changed over to BiPAP. Ptimproved clinically with less respiratory distress and stable saturation. CHF is a cause of dyspnea. Lasix 40 mg IV for CHF NTG paste 1" for CHF and HTN. HTN continued to exacerbate CHF so lopressor 5 mg IV given. THis helped mildly. Hydralazine 10 mg IV given and brought BP down to 136\\80 with improvement in respiratory distress. BP slowly climbed so an additional 5mg hydralazine given with stable BP. Albuterol HHN with mild improvement Pt with elevated D-dimer and potential PE. With elevated renal studies and kidney transplant will defer CTA, bolus with heparin and order V/Q scan. Heparin 5,000 unit bolus then 800 per hour. Discussed with . Who requests abdi and EKG. Will admit to the ICU. PT now resting. Critical care performed (120 minutes). Time is exclusive of separately billable procedures. Time includes: direct patient care, patient reassessment, coordination of patient care, interpretation of data (laboratory data, pulse oximetry, arterial blood gases, chest xrays, prior electrocardiograms and cardiac output measurements), review of patient's medical records, medical consultation, family consultation regarding treatment decisions and documentation of patient care. Procedures included in critical care time: peripheral IV placement and phlebotomy- see progress notes. Procedures excluded from critical care time: electrocardiography. Discussed case with on-call health care provider, (Remedios). Reviewed test results. Agreed upon treatment plan and decision to admit. Health care provider will see patient in hospital. Patient/family counseled. Old medical records ordered. Disposition orders written. Disposition: Admitted to the Critical Care Unit. CLINICAL IMPRESSION Acute CHF Acute respiratory failure Renal insufficeincy with kidney transplant. Hypoxia Diabetes with uncontrolled hyperglycemia. (Electronically signed by Yobany Ramirez MD 11/02/2016 22:11)
--- NOTE | 2016-11-01 22:15 | ED ORDER SUMMARY ---
..... Patient: TONI SANTA OrderSheet [facility] VisitID: [id number] [address] [place] [address] 71y, F Registration Date/Time: 11/01/2016 ORDER SHEET Weight: 55.1 kg (measured) Allergies: PCN GENERAL ORDERS: Chest 1V Urgent (20:40 11/01/2016 Marguerite Monterroso) (Ack 20:44 IJurca ER Tech1) (20:55 Tal) UA-Culture if indicated Urgent (20:40 11/01/2016 Marguerite Monterroso) (Ack 20:44 IJurca ER Tech1) (22:03 CFalkner R.N.) Cardiac Panel Stat (20:40 11/01/2016 Marguerite Monterroso) (Ack 20:44 IJurca ER Tech1) (21:45 CFalkner R.N.) BNP Urgent (20:40 11/01/2016 Marguerite Monterroso) (Ack 20:44 IJurca ER Tech1) (21:45 CFalkner R.N.) D-Dimer Urgent (20:40 11/01/2016 Marguerite Monterroso) (Ack 20:44 IJurca ER Tech1) (21:45 CFalkner R.N.) Lactate, Serum Urgent (21:25 11/01/2016 Gaby BOLTON) (Ack 21:29 IJurca ER Tech1) (21:45 CFalkner R.N.) PCT (Procalcitonin) Urgent (21:25 11/01/2016 Gaby BOLTON) (Ack 21:29 IJurca ER Tech1) (21:45 CFalkner R.N.) ABG (G) Urgent (21:28 11/01/2016 Gaby BOLTON) (Ack 21:29 IJurca ER Tech1) (22:03 CFalkner R.N.) EKG - ER Stat (22:37 11/01/2016 Gaby BOLTON) (Ack 22:39 IJurca ER Tech1) (22:54 IJurca ER Tech1) EKG - ER Stat (22:40 11/01/2016 Gaby BOLTON) (Cancelled: Other22:41 Gaby BOLTON) Mares Catheter (22:40 11/01/2016 Gaby BOLTON) (Ack 22:54 IJurca ER Tech1) (23:05 SSambjasbir R.N.) MEDICATION ORDERS: NitroGLYCERIN Paste Topical 1 in. (NOW, to CW) (21:03 11/01/2016 Marguerite Monterroso) (21:11 SSambjasbir R.N.) Albuterol Neb Tx 5 mg (HHN) (22:39 11/01/2016 Gaby BOLTON) IV FLUIDS: Lopressor IV 5 mg (HIGH ALERT MEDICATION, NOW) (21:04 11/01/2016 Marguerite Monterroso) (21:06 Silviambjasbir R.N.) Lasix IV 40 mg (NOW) (21:04 11/01/2016 Marguerite Monterroso) (21:07 Silviambjasbir R.N.) Hydralazine IV 10 mg (NOW) (21:28 11/01/2016 Gaby BOLTON) (21:37 SSambou R.N.) Heparin IV : initial bolus 5,000 units, then 800 units per hour for 4h (NOW); Routine (21:35 11/01/2016 Gaby BOLTON) (22:17 SSambou R.N.) Hydralazine IV 5 mg IV (NOW) (23:09 11/01/2016 Gaby BOLTON) (23:20 SSambou R.N.) ORDER SHEET NOTES: [Electronically signed by Sheriff José Antonio Weiss (01:46 11/02/2016)] [Electronically signed by Yobany Ramirez MD (22:11 11/02/2016)] [Electronically locked/signed by Sheriff José Antonio Weiss (01:46 11/02/2016)]
--- NOTE | 2016-11-01 22:15 | ED NURSING NOTES ---
Clinical Report - Nurses [facility] [address] [place] [address] 11/01/2016 20:32 [id number] Triage time 20:37. Acuity: LEVEL 2. Chief Complaint: SHORTNESS OF BREATH and DIFFICULTY BREATHING. SIMI COMA SCORE: Simi Coma Scale: 15- eyes open spontaneously (4); best verbal response- oriented x 4 (5); best motor response- obeys commands (6). --20:45 Owen Parson R.N. 20:37 11/01/16. BP: 226/147 taken on the right arm. HR: 122. RR: 24. O2 saturation: 100%. Temp: 97.5 F (oral). Figueroa-Harrell pain scale: 4/10. Additional comments: on CPAP with high flow oxygen. --20:45 Owen Parson R.N. Weight: 55.1 kg measured. Height/Length: 63 inches Per Patient. BMI: 21.5. --21:54 Yao Knapp R.N. Medications ALPRAZolam Oral 0.5 mg, 3x a day as needed. Aspirin Oral (Tablet Chewable 81 mg) 1 tablet, daily. AzaTHIOprine Oral (Tablet 50 mg) 1-1/2 tablets, daily. AzaTHIOprine Oral (Tablet 75 mg), daily. Carvedilol Phosphate ER Oral 6.25 mg. Hydrocodone-Acetaminophen Oral 5 mg, 4x a day as needed. Lisinopril Oral 5 mg, daily. Pravastatin Sodium Oral 10 mg, at bedtime. PredniSONE Oral 5 mg, daily. Tacrolimus Oral (Capsule 0.5 mg) 1 capsule, BID. --20:38 Owen Parson R.N. Allergies PCN. Definite Severe(swelling) --20:38 Owen Parson R.N. History Arrived by EMS. Historian: EMS. Unaccompanied. ( brought in by EMS on CPAP). 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 --20:45 Owen Parson R.N. PROBLEMS: Vasovagal Syncope. Heart Disease. Abnormal Test. Pneumonia. Congestive Heart Failure. Hypertension. Renal Failure. Diabetes Mellitus. UTI - Urinary Tract Infection. Immunizations. Borderline diabetes. --20:39 Owen Parson R.N. ADDITIONAL SURGERIES: Appendectomy. AV Fistula, Left Arm. Cholecystectomy. Renal transplant. --20:39 Owen Parson R.N. Interventions ID and allergy band on patient. To treatment room. --20:45 Owen Parson R.N. PHYSICAL ASSESSMENT To room via stretcher. GENERAL / NEURO / PSYCH: Alert. Oriented X 4. Appears anxious and in distress. HEENT: Mucous membranes are pink. RESPIRATORY: Severe respiratory distress. She is unable to speak (on cpap, speaking is difficult). Accessory muscle use. Decreased breath sounds. ( diminished breath sounds). CVS: ( sinus tach on monitor, JVD present). Capillary refill less than 2 seconds. SKIN: Skin is warm and dry. --20:48 Owen Parson R.N. NURSING PROGRESS NOTES Oxygen administered. secured entrance monitor, pulse oximeter and NIBP monitor placed on patient. Patient gowned. Two patient identifiers checked. Call light placed in reach. Side rails up x 2. Bed placed in lowest position. Brakes of bed on. Patient ready for evaluation- chart flagged. ED physician notified. ( RT is present and Dr Bass has performed exam). Patient waiting for evaluation. --20:49 Owen Parson R.N. 20:51 11/01/2016 Site #1 started via IV in the right forearm with an 20g angiocath, with aseptic technique and good blood return; one attempt. Blood drawn: rainbow set and cultures x2. Labeled in the presence of the patient. Saline lock flushed with 10 mL saline. --21:06 Sheriff Weiss R.N. 21:06 11/01/2016 Lopressor (Metoprolol Tartrate) IVP 5 mg given over 1 minute(s) via site #1. Allergies verified and confirmed 5 rights. IV patency established site checked: no pain, redness, or swelling flushed thoroughly pre- and post-medication administration. IVP given by RN. --21:06 Sheriff Weiss R.N. 21:07 11/01/2016 Lasix IVP 40 mg given over 2 minute(s) via site #1. Allergies verified and confirmed 5 rights. IV patency established site checked: no pain, redness, or swelling flushed thoroughly pre- and post-medication administration. IVP given by RN. --21:07 Sheriff Weiss R.N. 21:11 11/01/2016 NITROGLYCERIN PASTE Topical Paste 1 inch. Applied to the left chest. Allergies verified and confirmed 5 rights. --21:11 Sheriff Weiss R.N. 21:37 11/01/2016 Hydralazine IVP 10 mg given over 30 second(s) via site #1. Allergies verified and confirmed 5 rights. IV patency established site checked: no pain, redness, or swelling flushed thoroughly pre- and post-medication administration. IVP given by RN. --21:37 Sheriff Weiss R.N. 21:54 11/01/16. Patient ID band checked for patient name and birthdate: patient confirmed. Instructions provided to collect clean catch urine and patient verbalized understanding. Catheterized urine collected with return of yellow-colored clear urine; odor is normal; sample sent to lab for urinalysis and culture. Specimen labeled in the presence of the patient (by Brittani Lowery RN). --21:54 Yao Knapp R.N. 22:17 11/01/2016 Heparin IVP 5000 unit given over 2 minute(s) via site #1. Allergies verified and confirmed 5 rights. IV patency established site checked: no pain, redness, or swelling flushed thoroughly pre- and post-medication administration. IVP given by RN. --22:17 Sheriff Weiss R.N. EKG time: (2248). EKG was ordered, performed by a tech and shown to the ED physician. --22:55 Oracio Villafuerte, ER Tech1 23:05 11/01/2016 Albuterol Neb TX 1 unit dose given. Given by the respiratory therapist. Allergies verified and confirmed 5 rights. --23:05 Sheriff Weiss R.N. 22:00 11/01/16. BP: 135/78. HR: 78. RR: 18. O2 saturation: 100%. Temp: 98.5 F. Pain level now: 11/24. --23:08 Sheriff Weiss R.N. 23:20 11/01/2016 Hydralazine IVP 5 mg given over 30 second(s) via site #1. Allergies verified and confirmed 5 rights. IV patency established site checked: no pain, redness, or swelling flushed thoroughly pre- and post-medication administration. IVP given by RN. --23:20 Sheriff Weiss R.N. 14 fr abdi catheter placed. Reason for indwelling catheter: critical need to monitor intake and output. During procedure hand hygiene observed and sterile equipment and aseptic technique used. Return of 800 mL yellow-colored clear urine; attached to bedside drainage bag positioned below the bladder. She tolerated procedure well. --23:40 Sheriff Weiss R.N. 00:58 11/02/16. BP: 152/74. HR: 81. RR: 20. O2 saturation: 99% at 2 liters/minute. --00:59 Sheriff Weiss R.N. Intake & Output TOTAL OUTPUT: 800 mL. Urine, with return of 800 mL yellow-colored clear urine; attached to bedside drainage bag. --23:47 Sheriff Weiss R.N. DISPOSITION / DISCHARGE Admitted (1:30 AM). Transported via stretcher by nurse and respiratory therapist with monitor and O2. Report was given to a nurse in person. All questions were answered. Report was acknowledged. Patient's personal items include: shirt and pants; items were placed in belongings bag and transported with the patient. Collection of belongings was witnessed by nurse and hospital insurance clerk. --01:41 Sheriff Weiss R.N. 01:30 11/02/16. BP: 140/70. HR: 81. RR: 16. O2 saturation: 99%. Pain level now: 09/26. --01:44 Sheriff Weiss R.N. Locked/Released at 11/02/2016 1:46 by Sheriff Weiss R.N.
--- NOTE | 2016-11-01 22:15 | ED ORDER SUMMARY ---
..... Patient: TONI SANTA OrderSheet [facility] VisitID: [id number] [address] [place] [address] 71y, F Registration Date/Time: 11/01/2016 ORDER SHEET Weight: 55.1 kg (measured) Allergies: PCN GENERAL ORDERS: Chest 1V Urgent (20:40 11/01/2016 Marguerite Monterroso) (Ack 20:44 IJurca ER Tech1) (20:55 Tal) UA-Culture if indicated Urgent (20:40 11/01/2016 Marguerite Monterroso) (Ack 20:44 IJurca ER Tech1) (22:03 CFalkner R.N.) Cardiac Panel Stat (20:40 11/01/2016 Marguerite Monterroso) (Ack 20:44 IJurca ER Tech1) (21:45 CFalkner R.N.) BNP Urgent (20:40 11/01/2016 Marguerite Monterroso) (Ack 20:44 IJurca ER Tech1) (21:45 CFalkner R.N.) D-Dimer Urgent (20:40 11/01/2016 Marguerite Monterroso) (Ack 20:44 IJurca ER Tech1) (21:45 CFalkner R.N.) Lactate, Serum Urgent (21:25 11/01/2016 Gaby BOLTON) (Ack 21:29 IJurca ER Tech1) (21:45 CFalkner R.N.) PCT (Procalcitonin) Urgent (21:25 11/01/2016 Gaby BOLTON) (Ack 21:29 IJurca ER Tech1) (21:45 CFalkner R.N.) ABG (G) Urgent (21:28 11/01/2016 Gaby BOLTON) (Ack 21:29 IJurca ER Tech1) (22:03 CFalkner R.N.) EKG - ER Stat (22:37 11/01/2016 Gaby BOLTON) (Ack 22:39 IJurca ER Tech1) (22:54 IJurca ER Tech1) EKG - ER Stat (22:40 11/01/2016 Gaby BOLTON) (Cancelled: Other22:41 Gaby BOLTON) Mares Catheter (22:40 11/01/2016 Gaby BOLTON) (Ack 22:54 IJurca ER Tech1) (23:05 SSambjasbir R.N.) MEDICATION ORDERS: NitroGLYCERIN Paste Topical 1 in. (NOW, to CW) (21:03 11/01/2016 Marguerite Monterroso) (21:11 SSambjasbir R.N.) Albuterol Neb Tx 5 mg (HHN) (22:39 11/01/2016 Gaby BOLTON) IV FLUIDS: Lopressor IV 5 mg (HIGH ALERT MEDICATION, NOW) (21:04 11/01/2016 Marguerite Monterroso) (21:06 Silviambjasbir R.N.) Lasix IV 40 mg (NOW) (21:04 11/01/2016 Marguerite Monterroso) (21:07 Silviambjasbir R.N.) Hydralazine IV 10 mg (NOW) (21:28 11/01/2016 Gaby BOLTON) (21:37 SSambou R.N.) Heparin IV : initial bolus 5,000 units, then 800 units per hour for 4h (NOW); Routine (21:35 11/01/2016 Gaby BOLTON) (22:17 SSambou R.N.) Hydralazine IV 5 mg IV (NOW) (23:09 11/01/2016 Gaby BOLTON) (23:20 SSambou R.N.) ORDER SHEET NOTES: [Electronically signed by Sheriff José Antonio Weiss (01:46 11/02/2016)] [Electronically signed by Yobany Ramirez MD (22:11 11/02/2016)] [Electronically locked/signed by Sheriff José Antonio Weiss (01:46 11/02/2016)]
--- NOTE | 2016-11-01 22:15 | ED NURSING NOTES ---
Clinical Report - Nurses [facility] [address] [place] [address] 11/01/2016 20:32 [id number] Triage time 20:37. Acuity: LEVEL 2. Chief Complaint: SHORTNESS OF BREATH and DIFFICULTY BREATHING. SIMI COMA SCORE: Simi Coma Scale: 15- eyes open spontaneously (4); best verbal response- oriented x 4 (5); best motor response- obeys commands (6). --20:45 Owen Parson R.N. 20:37 11/01/16. BP: 226/147 taken on the right arm. HR: 122. RR: 24. O2 saturation: 100%. Temp: 97.5 F (oral). Figueroa-Harrlel pain scale: 4/10. Additional comments: on CPAP with high flow oxygen. --20:45 Owen Parson R.N. Weight: 55.1 kg measured. Height/Length: 63 inches Per Patient. BMI: 21.5. --21:54 Yao Knapp R.N. Medications ALPRAZolam Oral 0.5 mg, 3x a day as needed. Aspirin Oral (Tablet Chewable 81 mg) 1 tablet, daily. AzaTHIOprine Oral (Tablet 50 mg) 1-1/2 tablets, daily. AzaTHIOprine Oral (Tablet 75 mg), daily. Carvedilol Phosphate ER Oral 6.25 mg. Hydrocodone-Acetaminophen Oral 5 mg, 4x a day as needed. Lisinopril Oral 5 mg, daily. Pravastatin Sodium Oral 10 mg, at bedtime. PredniSONE Oral 5 mg, daily. Tacrolimus Oral (Capsule 0.5 mg) 1 capsule, BID. --20:38 Owen Parson R.N. Allergies PCN. Definite Severe(swelling) --20:38 Owen Parson R.N. History Arrived by EMS. Historian: EMS. Unaccompanied. ( brought in by EMS on CPAP). 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 --20:45 Owen Parson R.N. PROBLEMS: Vasovagal Syncope. Heart Disease. Abnormal Test. Pneumonia. Congestive Heart Failure. Hypertension. Renal Failure. Diabetes Mellitus. UTI - Urinary Tract Infection. Immunizations. Borderline diabetes. --20:39 Owen Parson R.N. ADDITIONAL SURGERIES: Appendectomy. AV Fistula, Left Arm. Cholecystectomy. Renal transplant. --20:39 Owen Parson R.N. Interventions ID and allergy band on patient. To treatment room. --20:45 Owen Parson R.N. PHYSICAL ASSESSMENT To room via stretcher. GENERAL / NEURO / PSYCH: Alert. Oriented X 4. Appears anxious and in distress. HEENT: Mucous membranes are pink. RESPIRATORY: Severe respiratory distress. She is unable to speak (on cpap, speaking is difficult). Accessory muscle use. Decreased breath sounds. ( diminished breath sounds). CVS: ( sinus tach on monitor, JVD present). Capillary refill less than 2 seconds. SKIN: Skin is warm and dry. --20:48 Owen Parson R.N. NURSING PROGRESS NOTES Oxygen administered. med surg rn, pulse oximeter and NIBP monitor placed on patient. Patient gowned. Two patient identifiers checked. Call light placed in reach. Side rails up x 2. Bed placed in lowest position. Brakes of bed on. Patient ready for evaluation- chart flagged. ED physician notified. ( RT is present and Dr Bass has performed exam). Patient waiting for evaluation. --20:49 Owen Parson R.N. 20:51 11/01/2016 Site #1 started via IV in the right forearm with an 20g angiocath, with aseptic technique and good blood return; one attempt. Blood drawn: rainbow set and cultures x2. Labeled in the presence of the patient. Saline lock flushed with 10 mL saline. --21:06 Sheriff Weiss R.N. 21:06 11/01/2016 Lopressor (Metoprolol Tartrate) IVP 5 mg given over 1 minute(s) via site #1. Allergies verified and confirmed 5 rights. IV patency established site checked: no pain, redness, or swelling flushed thoroughly pre- and post-medication administration. IVP given by RN. --21:06 Sheriff Weiss R.N. 21:07 11/01/2016 Lasix IVP 40 mg given over 2 minute(s) via site #1. Allergies verified and confirmed 5 rights. IV patency established site checked: no pain, redness, or swelling flushed thoroughly pre- and post-medication administration. IVP given by RN. --21:07 Sheriff Weiss R.N. 21:11 11/01/2016 NITROGLYCERIN PASTE Topical Paste 1 inch. Applied to the left chest. Allergies verified and confirmed 5 rights. --21:11 Sheriff Weiss R.N. 21:37 11/01/2016 Hydralazine IVP 10 mg given over 30 second(s) via site #1. Allergies verified and confirmed 5 rights. IV patency established site checked: no pain, redness, or swelling flushed thoroughly pre- and post-medication administration. IVP given by RN. --21:37 Sheriff Weiss R.N. 21:54 11/01/16. Patient ID band checked for patient name and birthdate: patient confirmed. Instructions provided to collect clean catch urine and patient verbalized understanding. Catheterized urine collected with return of yellow-colored clear urine; odor is normal; sample sent to lab for urinalysis and culture. Specimen labeled in the presence of the patient (by Brittani Lowery RN). --21:54 Yao Knapp R.N. 22:17 11/01/2016 Heparin IVP 5000 unit given over 2 minute(s) via site #1. Allergies verified and confirmed 5 rights. IV patency established site checked: no pain, redness, or swelling flushed thoroughly pre- and post-medication administration. IVP given by RN. --22:17 Sheriff Weiss R.N. EKG time: (2248). EKG was ordered, performed by a tech and shown to the ED physician. --22:55 Oracio Villafuerte, ER Tech1 23:05 11/01/2016 Albuterol Neb TX 1 unit dose given. Given by the respiratory therapist. Allergies verified and confirmed 5 rights. --23:05 Sheriff Wiess R.N. 22:00 11/01/16. BP: 135/78. HR: 78. RR: 18. O2 saturation: 100%. Temp: 98.5 F. Pain level now: 11/24. --23:08 Sheriff Weiss R.N. 23:20 11/01/2016 Hydralazine IVP 5 mg given over 30 second(s) via site #1. Allergies verified and confirmed 5 rights. IV patency established site checked: no pain, redness, or swelling flushed thoroughly pre- and post-medication administration. IVP given by RN. --23:20 Sheriff Weiss R.N. 14 fr abdi catheter placed. Reason for indwelling catheter: critical need to monitor intake and output. During procedure hand hygiene observed and sterile equipment and aseptic technique used. Return of 800 mL yellow-colored clear urine; attached to bedside drainage bag positioned below the bladder. She tolerated procedure well. --23:40 Sheriff Weiss R.N. 00:58 11/02/16. BP: 152/74. HR: 81. RR: 20. O2 saturation: 99% at 2 liters/minute. --00:59 Sheriff Weiss R.N. Intake & Output TOTAL OUTPUT: 800 mL. Urine, with return of 800 mL yellow-colored clear urine; attached to bedside drainage bag. --23:47 Sheriff Weiss R.N. DISPOSITION / DISCHARGE Admitted (1:30 AM). Transported via stretcher by nurse and respiratory therapist with monitor and O2. Report was given to a nurse in person. All questions were answered. Report was acknowledged. Patient's personal items include: shirt and pants; items were placed in belongings bag and transported with the patient. Collection of belongings was witnessed by nurse and production control coordinating clerk. --01:41 Sheriff Weiss R.N. 01:30 11/02/16. BP: 140/70. HR: 81. RR: 16. O2 saturation: 99%. Pain level now: 09/26. --01:44 Sheriff Weiss R.N. Locked/Released at 11/02/2016 1:46 by Sheriff Weiss R.N.
--- NOTE | 2016-11-01 22:15 | ED CLINICAL REPORT ---
Clinical Report - Physicians/Mid Levels [facility] [address] [place] [address] 11/01/2016 20:32 Patient: TONI SANTA Time Seen: 20:39; initial patient contact. Arrived- By ambulance. Historian- patient and EMS personnel. CPT: Critical care < 74 min plus (#[id number]) and 30-74 min plus (#[id number]). EKG interpretation (#[id number]). HISTORY OF PRESENT ILLNESS Chief Complaint: DYSPNEA and HISTORY OF CONGESTIVE HEART FAILURE. This started today and is still present. The dyspnea is severe and is worsened by exertion, is improved by rest and is improved with oxygen. No cough, sputum production, fever or chest pain or discomfort. No calf pain or foot swelling. She has had wheezing, dyspnea on exertion and anxiety. Similar symptoms previously: Milder. Diagnosis: bronchitis. Recent medical care: Not recently seen/assessed. REVIEW OF SYSTEMS The patient has had weakness, but not had weight loss. No eye irritation, sore throat or throat, nasal discharge or sinus drainage. No nausea, vomiting, abdominal pain, diarrhea or black stools. No fainting episodes, difficulty with urination or urination or skin rash or rash. No enlarged lymph nodes, hematuria, diabetic symptoms or easy bruising. All systems otherwise negative, except as recorded above. PAST HISTORY Vasovagal Syncope. Heart Disease. Pneumonia. Congestive Heart Failure. Hypertension. Renal Failure. Diabetes Mellitus. UTI - Urinary Tract Infection. Borderline diabetes. Appendectomy. AV Fistula, Left Arm. Cholecystectomy. Renal transplant. Medications: ALPRAZolam Oral 0.5 mg, 3x a day as needed. Aspirin Oral (Tablet Chewable 81 mg) 1 tablet, daily. AzaTHIOprine Oral (Tablet 50 mg) 1-1/2 tablets, daily. AzaTHIOprine Oral (Tablet 75 mg), daily. Carvedilol Phosphate ER Oral 6.25 mg. Hydrocodone-Acetaminophen Oral 5 mg, 4x a day as needed. Lisinopril Oral 5 mg, daily. Pravastatin Sodium Oral 10 mg, at bedtime. PredniSONE Oral 5 mg, daily. Tacrolimus Oral (Capsule 0.5 mg) 1 capsule, BID. Allergies: PCN. Definite Severe(swelling). SOCIAL HISTORY Former smoker. No alcohol use or drug use. ADDITIONAL NOTES The nursing notes have been reviewed. PHYSICAL EXAM Vital Signs: 11/01/2016 20:37 BP: 226/147. HR: 122. RR: 24. O2 saturation: 100%. Temp: 97.5 F. Figueroa-Harrell pain scale: 4/10. Appearance: Alert. Anxious. Patient in moderate distress. Eyes: Eyes normal inspection. ENT: Nose normal. Pharynx normal. Uvula midline. Neck: Normal inspection. JVD to the angle of the jaw present at 45 degrees. Neck supple. CVS: Tachycardia. Heart sounds normal. Pulses normal. Respiratory: Moderate respiratory distress (On CPAP). Decreased air movement. Moderate rales present in the bases bilaterally. Abdomen: Soft and nontender. Back: Normal inspection. Skin: Skin warm. Normal skin color. No rash. Extremities: Extremities exhibit normal ROM. No calf tenderness. No lower extremity edema. Neuro: Oriented X 3. No motor deficit. No sensory deficit. Reflexes normal. LABS, X-RAYS, AND EKG EKG: Normal sinus rhythm. Normal P waves. Normal QRS complex. Non-specific ST segment / T wave abnormalities. EKG unchanged when compared with prior EKG. The study has been interpreted contemporaneously. The study has been independently viewed by me. The EKG appears to be a good tracing. Chest X-ray: Congestive heart failure present. Pulmonary edema present. Vascular congestion present. Views: AP (portable). Technique: good. The X-rays were independently viewed by me. Laboratory Tests: CBC w Manual Diff: (QUINCY: 11/02/2016 05:20) ( MsgRcvd 11/02/2016 06:19) Final results Test Result Flag Units (Reference) WHITE BLOOD COUNT NO REFLEX 10.1 K/uL (4.5-11.5) RED BLOOD COUNT 3.60 L M/uL (4.00-5.20) HEMOGLOBIN 11.3 L gm/dL (12.0-16.0) HEMATOCRIT 33.7 L % (36.0-46.0) MEAN CELL VOLUME 94 fL (80-100) MEAN CORPUSCULAR HGB 32 pg (26-34) MEAN CORPUSCULAR HGB CONC 34 g/dL (31-37) RED CELL DISTRIBUTION WIDTH 14.4 % (11.6-14.8) PLATELET COUNT 218 K/uL (150-400) POLY % 74 % (50-75) BAND % 6 % (0-8) LYMPH 17 L % (25-40) MONO 3 % (3-14) EOSINOPHIL % 0 % (0-4) BASOPHIL % 0 % (0-2) METAMYELOCYTE % 0 % (0-1) MYELOCYTE 0 % (0-1) OTHER CELL TYPE 0 HYPOCHROMIA 1+ [id number]: (QUINCY: 11/02/2016 05:20) ( [facility] [place] Final results Test Result Flag Units (Reference) CHOLESTEROL 184 mg/dL (140-200) TRIGLYCERIDES 138 mg/dL (30-200) HDL CHOLESTEROL 63 mg/dL (32-96) LDL,CALCULATED 94 mg/dL Normal range for LDL by direct measurement is 66-178The LDL reported is a calculated value and may approximatea direct measurement. CHOL/HDL 2.9 LDL/HDL 1.5 CORONARY RISK FACTOR 0.5 (0.4-1.0) [id number]: (QUINCY: 11/02/2016 05:20) ( [facility] [place] 06:04) Final results Test Result Flag Units (Reference) CALCULATED A1C 6.3 H % (4.5-6.2) The [place] [employer] recommends that aprimary goal of therapy should be a HbA1c of <7% and thatphysicians should reevaluate the treatment regimen inpatients with HbA1c values consistently >8%. ESTIMATED AVERAGE GLUCOSE 134 mg/dL BNP: (QUINCY: 11/02/2016 05:20) ( [facility] [place] 06:12) Final results Test Result Flag Units (Reference) B-TYPE NATRIURETIC PEPTIDE 1870 H pg/ml (5-100) BMP: (QUINCY: 11/02/2016 05:20) ( MsgRcvd 11/02/2016 06:02) Final results Test Result Flag Units (Reference) GLUCOSE 93 mg/dL (70-110) BUN 29 H mg/dL (7-18) CREATININE 1.0 mg/dL (0.6-1.3) Estimated GFR 57.76 mL/min Estimated GFR- >60 mL/min Note: Persistent reduction over 3 months in eGFR<60 mL/min/1.73 m2 defines CKD. Patients with eGFR values>=60 mL/min/1.73 m2 may also have CKD if evidence ofpersistent proteinuria. Additional information may be foundat www.kidney.org. SODIUM 143 # mmol/L (136-145) POTASSIUM 3.7 # mmol/L (3.5-5.1) CHLORIDE 105 mmol/L (98-107) CARBON DIOXIDE 25 mmol/L (21-32) CALCIUM 8.9 mg/dL (8.5-10.1) Troponin-I: (QUINCY: 11/02/2016 05:20) ( [facility] 11/02/2016 06:02) Final results Test Result Flag Units (Reference) TROPONIN I 0.14 ng/mL (0.00-1.5) TROPONIN REFERENCE RANGE:<0.1 NEGATIVE0.1-1.5 INDETERMINANT>1.5 POSITIVE UA-Culture if indicated: (QUINCY: 11/01/2016 21:16) ( [facility] 11/01/2016 22:20) Final results Test Result Flag Units (Reference) URINE COLOR YELLOW URINE APPEARANCE CLEAR URINE GLUCOSE NEGATIVE (NEGATIVE) URINE BILIRUBIN NEGATIVE (NEGATIVE) URINE KETONE NEGATIVE (NEGATIVE) URINE SPECIFIC GRAVITY 1.015 (1.010-1.030) URINE PH 6.0 (5.0-8.0) URINE PROTEIN NEGATIVE (NEGATIVE) URINE UROBILINOGEN 0.2 EU/dL (0.2-1.0) URINE NITRITE NEGATIVE (NEGATIVE) URINE BLOOD NEGATIVE (NEGATIVE) URINE LEUK ESTERASE NEGATIVE (NEGATIVE) URINE RBC 0-1 rbc/hpf (0-1) URINE WBC 0-1 wbc/hpf (0-1) URINE EPITHELIAL CELLS 0-1 EPI/hpf (0-5) URINE BACTERIA NONE SEEN (NONE SEEN) URINE COMMENT CULT NOT INDICATED URINE CULTURES ARE SET-UP BASED ON THE FOLLOWING CRITERIA:POSITIVE NITRITEPOSITIVE LEUKOCYTE ESTERASEGREATER THAN 10 WHITE BLOOD CELLSMODERATE (2+) OR GREATER BACTERIA CBC w Diff: (QUINCY: 11/01/2016 20:50) ( [facility] 11/01/2016 21:07) Final results Test Result Flag Units (Reference) WHITE BLOOD COUNT 17.8 # H K/uL (4.5-11.5) RED BLOOD COUNT 4.00 M/uL (4.00-5.20) HEMOGLOBIN 12.6 gm/dL (12.0-16.0) HEMATOCRIT 38.4 % (36.0-46.0) MEAN CELL VOLUME 96 fL (80-100) MEAN CORPUSCULAR HGB 32 pg (26-34) MEAN CORPUSCULAR HGB CONC 33 g/dL (31-37) RED CELL DISTRIBUTION WIDTH 14.2 % (11.6-14.8) PLATELET COUNT 278 K/uL (150-400) NEUTROPHIL % 68.3 % (50-75) LYMPH % 26.5 % (25-40) MONO % 4.5 % (3-14) EOSINOPHIL % 0.4 % (0-4) BASOPHIL % 0.3 % (0-2) [id number]: (QUINCY: 11/01/2016 20:50) ( [facility] 11/01/2016 21:25) Final results Test Result Flag Units (Reference) D-DIMER QUANTITATIVE 3.37 H ug/mLFEU (0.27-0.52) The primary value of this quantitative assay relates toits negative predictive value (i.e. exclusion) of pulmonaryembolism/deep vein thrombosis/DIC.Elevated levels of d-dimer may also occur with:, age, cancer, inflammation, liver disease,post-op, infection, hematoma, coronary disease, peripheralarteriopathy, bleeding disorders and thrombolytic treatment.Results should be correlated with other clinical andradiological data.Testing Methodology: Latex Immunoassay Troponin-I: (QUINCY: 11/01/2016 23:30) ( [facility] 11/02/2016 00:01) Final results Test Result Flag Units (Reference) TROPONIN I 0.16 ng/mL (0.00-1.5) TROPONIN REFERENCE RANGE:<0.1 NEGATIVE0.1-1.5 INDETERMINANT>1.5 POSITIVE Lactate, Serum: (QUINCY: 11/01/2016 20:50) ( [facility] 11/01/2016 21:46) Final results Test Result Flag Units (Reference) LACTIC ACID 1.3 mmol/L (0.4-2.0) [id number]: (QUINCY: 11/01/2016 20:50) ( [facility] 11/01/2016 22:08) Final results Test Result Flag Units (Reference) PROCALCITONIN <0.5 ng/mL (0-0.5) PCT Concentration: Interpretation : Risk/option for action PCT <=0.5 ng/mL : Systemic : Low risk forinfection(sepsis): progression to severeis not likely. : systemic infection.Local bacterial : CAUTION-PCT levelsinfection is : below 0.5 ng/mL do notpossible. : exclude an infection,because localizedinfections (withoutsystemic signs) may beassociated with suchlow levels. If PCT ismeasured very earlyafter a bacterialchallenge (usually <6hours), these valuesmay still be low. Inthis case PCT shouldbe re-assessed 6-24hours later. PCT >0.5 and : Systemic infection: Moderate risk for<= 2 ng/mL : (sepsis) is : progression to severepossible, but : systemic infection.other conditions : The patient should beare known to : closely monitoredelevate PCT. : both clinically andby re-assessing PCTwithin 6-24 hours. PCT > 2 ng/mL : Systemic infection: High risk for(sepsis) is likely: progression to severeunless other : systemic infection.causes are known. : PCT >= 10 ng/mL : Important systemic: High likelihood ofinflammatory : severe sepsis orresponse, almost : septic shock.exclusively due to:severe bacterial :sepsis or septic :shock. : BNP: (QUINCY: 11/01/2016 20:50) ( MsgRcvd 11/01/2016 21:26) Final results Test Result Flag Units (Reference) B-TYPE NATRIURETIC PEPTIDE 1760 H pg/ml (5-100) CHEM 13 PANEL: (QUINCY: 11/01/2016 20:50) ( MsgRcvd 11/01/2016 21:22) Final results Test Result Flag Units (Reference) GLUCOSE 303 H mg/dL (70-110) BUN 33 H mg/dL (7-18) CREATININE 1.5 H mg/dL (0.6-1.3) Estimated GFR 36.18 mL/min Estimated GFR- 43.85 mL/min Note: Persistent reduction over 3 months in eGFR<60 mL/min/1.73 m2 defines CKD. Patients with eGFR values>=60 mL/min/1.73 m2 may also have CKD if evidence ofpersistent proteinuria. Additional information may be foundat www.kidney.org. SODIUM 134 L mmol/L (136-145) POTASSIUM 5.1 mmol/L (3.5-5.1) CHLORIDE 103 mmol/L (98-107) CARBON DIOXIDE 24 mmol/L (21-32) CALCIUM 8.7 mg/dL (8.5-10.1) TOTAL PROTEIN 7.6 g/dL (6.4-8.2) ALBUMIN 3.8 g/dL (3.3-5.0) BILIRUBIN, TOTAL 0.3 mg/dL (0.0-1.0) ALKALINE PHOSPHATASE 72 U/L (46-116) AST (SGOT) 16 U/L (15-37) ALT (SGPT) 17 U/L (12-78) MAGNESIUM 2.0 mg/dL (1.8-2.4) CPK 71 U/L (24-260) TROPONIN I <0.05 ng/mL (0.00-1.5) TROPONIN REFERENCE RANGE:<0.1 NEGATIVE0.1-1.5 INDETERMINANT>1.5 POSITIVE ABG: (QUINCY: 11/01/2016 21:28) ( MsgRcvd 11/01/2016 21:38) Final results Test Result Flag Units (Reference) FIO2 45 % (20-101) ABG MODE OF DELIVERY CPAP MODIFIED NELL TEST POSITIVE? YES ABG VENT MODE CPAP ABG PATIENT RESP RATE 20 /MIN ARTERIAL BLOOD GAS SITE RR ARTERIAL BLOOD GAS pH 7.27 L (7.35-7.45) ABG PCO2 54.7 H mmHg (35-45) ABG PO2 137.0 H mmHg (60.0-80.0) ABG BASE EXCESS -2.1 H mmol/L (-6.0--6.0) ABG HCO3 25.0 mmol/L (20.0-26.0) ABG TCO2 26.6 mmol/L (24.0-30.0) ABG XoRmG2x 123.2 H mmHg (7.0-14.0) *NOTE: Normal rangeis based on aFIO2 of 21% ABG SAT O2 99.2 % (95.1-100.0) ABG TOTAL HEMOGLOBIN 12.3 g/dL (12.0-16.0) ABG O2 HEMOGLOBIN 96.0 % (95.0-100.0) ABG CARBOXYHEMOGLOBIN 3.1 H % (0.5-1.5) ABG METHEMOGLOBIN 0.1 L % (0.4-1.5) ABG RHEMOGLOBIN 0.8 % . PROGRESS AND PROCEDURES Course of Care: Pt arrives on CPAP as EMS notes sat of 85% at the scene. Pt sat improved to 95% on CPAP. ABG shows respiratory failure and poor ventilation so pt changed over to BiPAP. Ptimproved clinically with less respiratory distress and stable saturation. CHF is a cause of dyspnea. Lasix 40 mg IV for CHF NTG paste 1" for CHF and HTN. HTN continued to exacerbate CHF so lopressor 5 mg IV given. THis helped mildly. Hydralazine 10 mg IV given and brought BP down to 136\\80 with improvement in respiratory distress. BP slowly climbed so an additional 5mg hydralazine given with stable BP. Albuterol HHN with mild improvement Pt with elevated D-dimer and potential PE. With elevated renal studies and kidney transplant will defer CTA, bolus with heparin and order V/Q scan. Heparin 5,000 unit bolus then 800 per hour. Discussed with . Who requests abdi and EKG. Will admit to the ICU. PT now resting. Critical care performed (120 minutes). Time is exclusive of separately billable procedures. Time includes: direct patient care, patient reassessment, coordination of patient care, interpretation of data (laboratory data, pulse oximetry, arterial blood gases, chest xrays, prior electrocardiograms and cardiac output measurements), review of patient's medical records, medical consultation, family consultation regarding treatment decisions and documentation of patient care. Procedures included in critical care time: peripheral IV placement and phlebotomy- see progress notes. Procedures excluded from critical care time: electrocardiography. Discussed case with on-call health care provider, (Remedios). Reviewed test results. Agreed upon treatment plan and decision to admit. Health care provider will see patient in hospital. Patient/family counseled. Old medical records ordered. Disposition orders written. Disposition: Admitted to the Critical Care Unit. CLINICAL IMPRESSION Acute CHF Acute respiratory failure Renal insufficeincy with kidney transplant. Hypoxia Diabetes with uncontrolled hyperglycemia. (Electronically signed by Yobany Ramirez MD 11/02/2016 22:11)
--- NOTE | 2016-11-01 22:21 | DIAGNOSTIC IMAGING REPORT ---
PROCEDURE: XR CHEST 1 VIEW INDICATION: SHORTNESS OF BREATH, initial encounter TECHNIQUE: Portable AP view 08:50 p.m. COMPARISON: Chest x-ray 10/27/2016 FINDINGS: New increased interstitial markings and pulmonary vascular congestion. Heart size is normal. Tortuous aorta. Bones are unremarkable. IMPRESSION: 1. Findings suggestive of mild CHF/fluid overload
[2016-11-01] MEDS ORDERED: ATIVAN0.5 MG PO (22:57)
[2016-11-01] MEDS ORDERED: ISOSORBIDE MONO30 MG PO (23:00)
[2016-11-01] MEDS ORDERED: TACROLIMUS0.5 MG PO (23:03)
--- NOTE | 2016-11-01 23:31 | Progress Note ---
Subjective General Admission History and Physical Examination Patient Name: Gali Crabtree Admission Date: November 01, 2016 Primary Care Provider: Adiel Lacy M.D. Attending Physician: Noe Whittaker M.D. Admitting Physician: Noe Whittaker M.D. Code Status: No Code Room: [facility] SUBJECTIVE Historian: Patient, ER records (no ER record dictated at time of H&P examination ) Reliability: Poor Chief Complaint: Shortness of breath History of Present Illness: The patient is a 71-year-old white female with a significant past medical history of chronic kidney disease status post renal transplantation, CHF, diabetes mellitus, hypertension, dementia, hyperlipidemia, who presented to [facility] emergency department on the day of admission secondary to complaints of shortness of breath. [facility] ER evaluation was consistent with exacerbation of CHF, respiratory failure with hypoxemia/hypercapnia. Secondary to the above, the patient was admitted by Noe Whittaker M.D. for further evaluation and treatment. The patient is unable to give any history regarding presentation to [facility] emergency department today. Denies any history of recent shortness of breath, chest pain, palpitations, peripheral edema. She was unaware that she was transported via ambulance to [facility] emergency department. ER record not available at time of my H&P. Previous history of dementia. PAST MEDICAL HISTORY Illnesses: 1. CHF 2. Diabetes mellitus-type II 3. Hypertension 4. Chronic kidney disease-status post renal transplant 5. Dementia 6. Hyperlipidemia 7. Renal artery stenosis Allergies: 1. Penicillin Medications: 1. Xanax 0.5 mg by mouth 3 times a day when necessary anxiety 2. Aspirin 81 mg by mouth daily 3. Azathioprine 75 mg by mouth daily 4. Coreg 6.25 mg by mouth twice a day 5. Vicodin 5/325 one by mouth 4 times a day when necessary pain 6. Lisinopril 5 mg by mouth daily 7. Pravastatin 10 mg by mouth daily at bedtime 8. Prednisone 5 mg by mouth daily 9. Tacrolimus 0.5 mg by mouth twice a day Surgery: 1. Appendectomy 2. Cholecystectomy 3. Renal transplantation 4. Mesenteric artery stenosis Injuries: 1. No significant Hospitalizations: 1. For above surgery and medical problems. FAMILY HISTORY Parents: 1. Father, Jony, , 70, prostate CA, 2. Mother, Idalia, , 70, diabetes mellitus Siblings: 1. Male, Noel, living, 64, healthy 2. Female, Xochitl, living, 62, diabetes mellitus, cancer-type unknown Children: 1. Male, Alvaro, living, 52, healthy 2. Female, Elizabeth Andrea, , 50, cancer type unknown Other significant family history: None SOCIAL HISTORY 1. Marital Status: , significant other-Alfredo Coughlin 2. Orthodox: Hoahaoism-Nondenominational 3. 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 Tobacco: 40 pack years, continues to smoke 4-5 cigarettes per day 2. Drugs: None 3. Alcohol: None 4. Caffeine: 1-2 cups coffee per day HEALTH SUPERVISION Item/Test 1. Not reviewed IMMUNIZATIONS: 1. Pneumococcal: 2017 (patient unsure) 2. Influenza: 2017 (patient unsure) 3. Tetanus: Unknown ADVANCED DIRECTIVES: 1. Living well: No 2. POLST: No 3. CODE STATUS: DNR/DNI 4. Durable Power Systems Security Consultant Health care: No 5. Donor card: No REVIEW OF SYSTEMS Remarkable for those things stated in the history of present illness and past medical history. Seventeen point review of system completed with the following notable findings: Eyes: Decreased visual acuity requiring corrective lenses Cardiovascular: Patient denies history of chest pain, shortness of breath, palpitations, peripheral edema Physical Exam Vital Signs / I&Os Vital Signs Blood pressure: 159/76 Pulse: 86 Respirations: 16 Temperature: 98.4 Fahrenheit Pulse oximetry: 99% 3 L/m nasal cannula General Appearance Alert, Cooperative, No acute distress, lying flat in bed HEENT Atraumatic, PERRLA, EOMI, Moist mucous membranes Lungs Scattered rhonchi, basilar crackles present bilaterally-minimal Neck Supple, No JVD, Bilateral bruit versus transmitted cardiac murmur Cardiovascular Regular rate and rhythm, Normal S1 and S2, grade 1-2/6 systolic murmur present Abdomen Normal bowel sounds, Soft, No tenderness, No guarding, No rebound Extremities No cyanosis, No clubbing, No edema Neurological Cranial nerves intact, Strength 5/5 x4 ext's, No lateralizing signs Psych/Mental Status Mood normal, Confused LAB Results Laboratory Tests 03/18 03/11/01 Blood Gas Sample Site RR Total CO2 (24.0 - 30.0 mmol/L) 26.6 ABG pH (7.35 - 7.45) 7.27 ABG pCO2 at Pt Temp (35 - 45 mmHg) 54.7 ABG pO2 at Pt Temp (60.0 - 80.0 mmHg) 137.0 ABG HCO3 (20.0 - 26.0 mmol/L) 25.0 ABG O2 Sat Calc/Lisa (95.1 - 100.0 %) 99.2 ABG Base Excess (-6.0 - -6.0 mmol/L) -2.1 ABG Reduced Hgb (%) 0.8 ABG Carboxyhemoglobin (0.5 - 1.5 %) 3.1 ABG Methemoglobin (0.4 - 1.5 %) 0.1 Saeid Test YES Other Total Hgb (12.0 - 16.0 g/dL) 12.3 A-a O2 Gradient (7.0 - 14.0 mmHg) 123.2 Hgb O2 Saturation (95.0 - 100.0 %) 96.0 Respiration Rate (/MIN) 20 Vent Mode CPAP FiO2 (20 - 101 %) 45 Chemistry Lactic Acid (0.4 - 2.0 mmol/L) 1.3 Procalcitonin (0 - 0.5 ng/mL) <0.5 Urines Urine Color YELLOW Urine Appearance CLEAR Urine pH (5.0 - 8.0) 6.0 Ur Specific [place] (1.010 - 1.030) 1.015 Urine Protein (NEGATIVE) NEGATIVE Urine Ketones (NEGATIVE) NEGATIVE Urine Blood (NEGATIVE) NEGATIVE Urine Nitrite (NEGATIVE) NEGATIVE Urine Bilirubin (NEGATIVE) NEGATIVE Urine Urobilinogen (0.2 - 1.0 EU/dL) 0.2 Ur Leukocyte Esterase (NEGATIVE) NEGATIVE Urine RBC (0 - 1 rbc/hpf) 0-1 Urine WBC (0 - 1 wbc/hpf) 0-1 Ur Epithelial Cells (0 - 5 EPI/hpf) 0-1 Urine Bacteria (NONE SEEN) NONE SEEN Urine Glucose (NEGATIVE) NEGATIVE Urine Comment CULT NOT INDICATED 11/01 Chemistry Plasma Sodium (136 - 145 mmol/L) 134 Plasma Potassium (3.5 - 5.1 mmol/L) 5.1 Plasma Chloride (98 - 107 mmol/L) 103 CO2 (Enzymatic) (21 - 32 mmol/L) 24 BUN (7 - 18 mg/dL) 33 Creatinine (0.6 - 1.3 mg/dL) 1.5 Est GFR ( Amer) (mL/min) 43.85 Est GFR (Non-Af Amer) (mL/min) 36.18 Glucose (70 - 110 mg/dL) 303 Plasma Calcium (8.5 - 10.1 mg/dL) 8.7 Plasma Magnesium (1.8 - 2.4 mg/dL) 2.0 Total Bilirubin (0.0 - 1.0 mg/dL) 0.3 AST (15 - 37 U/L) 16 ALT (12 - 78 U/L) 17 Alkaline Phosphatase (46 - 116 U/L) 72 Creatine Kinase (24 - 260 U/L) 71 Troponin (0.00 - 1.5 ng/mL) <0.05 B-Natriuretic Peptide (5 - 100 pg/ml) 1760 Total Protein (6.4 - 8.2 g/dL) 7.6 Albumin (3.3 - 5.0 g/dL) 3.8 Coagulation D-Dimer, Quantitative (0.27 - 0.52 ug/mLFEU) 3.37 Hematology WBC (4.5 - 11.5 K/uL) 17.8 RBC (4.00 - 5.20 M/uL) 4.00 Hgb (12.0 - 16.0 gm/dL) 12.6 Hct (36.0 - 46.0 %) 38.4 MCV (80 - 100 fL) 96 MCH (26 - 34 pg) 32 RDW (11.6 - 14.8 %) 14.2 Neut % (Auto) (50 - 75 %) 68.3 Lymph % (Auto) (25 - 40 %) 26.5 [place] % (Auto) (3 - 14 %) 4.5 Eos % (Auto) (0 - 4 %) 0.4 Baso % (Auto) (0 - 2 %) 0.3 Plt Count, EDTA (150 - 400 K/uL) 278 PUBS MCHC (31 - 37 g/dL) 33 Imaging Chest X-Ray IMPRESSION: 1. Findings suggestive of mild CHF/fluid overload Dictated by: BERNARD DHALIWAL MD D: MIGUEL;11/01/16 2952 Assessment and Plan Problem List 1. Congestive heart failure (CHF) Plan -Patient presents with history of fairly acute onset shortness of breath -Shortness of breath resolved at this time, patient lying flat in bed without shortness of breath -Emergency room findings suggestive of acute CHF -Patient denied chest pain at presentation and currently -EKG shows no acute ST-T wave changes -Chest x-ray suggest fluid overload/pulmonary congestion -Significant elevation of BNP at 1760 -Arterial blood gas suggestive of hypoxic/hypercarbic respiratory failure -Patient required short period of BiPAP therapy secondary to the above. -Atacand 4 mg by mouth twice a day, Lasix 40 mg IV twice a day, Coreg 6.25 mg by mouth 3 times a day, nitroglycerin paste 2 inches topically every 6 hours -Schedule echocardiogram. -Monitor serial troponin, EKG due to sudden onset of CHF -Patient should probably be scheduled for evaluation for coronary disease due to recurrent CHF hospitalizations -Low-salt diet -CHF education -Patient requests placement on DNR/DNI status, advanced care plan discussed with patient. 2. Diabetes mellitus type II, controlled Plan -Patient with history of diabetes mellitus -Check hemoglobin A1c -Monitor before meals and at bedtime blood sugar -Insulin sliding scale as needed 3. Hyperlipidemia Plan -Patient with history of hyperlipidemia -Continue Lipitor 20 mg by mouth daily -Check lipid profile -Low-cholesterol/low-fat diet 4. Renal insufficiency Plan -Patient with history of chronic kidney [id number], status post renal transplantation -Continue current immunosuppressive therapy -Monitor 5. Hypertension Status Chronic Onset Date Unknown Plan -Patient with history of hypertension -Blood pressure significantly elevated at time of admission, normalized at this time -Atacand, Coreg, nitroglycerin paste, Lasix -Monitor -Low-salt diet 6. Leukocytosis Status Acute Onset Date Unknown Plan -Patient with findings of leukocytosis -No clear findings of infectious process -Probably stress related -Monitor 7. Tobacco use disorder Plan -History of tobacco use disorder -Nicoderpriya prn -Smoking cessation education 8. Dementia Status Chronic Onset Date Unknown Plan -Pateint with history of dementia -Follow up and further workup per Dr. Lacy 9. Respiratory failure Plan -Patient with findings of hypoxic/hypercarbic respiratory failure -Chest x-ray suggestive of CHF -Patient shows findings of obstructive airway disease with hypercarbia -DuoNeb/albuterol treatment -Patient initially required BiPAP therapy had been weaned to nasal cannula O2 with normal O2 sats currently. -Monitor Current status: Critical, unstable Anticipated discharge date: Anticipated discharge in 3 days Anticipated discharge placement: Home Patient care time: Time spent in chart review, patient interview, physical exam, CPOE, and care documentation: 70 minutes Visit to patient today: 1 Complexity of care: High E&M Codes Admission: Inpt-High/82087
--- NOTE | 2016-11-01 23:31 | Progress Note ---
Subjective General Admission History and Physical Examination Patient Name: Gali Crabtree Admission Date: November 01, 2016 Primary Care Provider: Adiel Lacy M.D. Attending Physician: Noe Whittaker M.D. Admitting Physician: Noe Whittaker M.D. Code Status: No Code Room: [facility] SUBJECTIVE Historian: Patient, ER records (no ER record dictated at time of H&P examination ) Reliability: Poor Chief Complaint: Shortness of breath History of Present Illness: The patient is a 71-year-old white female with a significant past medical history of chronic kidney disease status post renal transplantation, CHF, diabetes mellitus, hypertension, dementia, hyperlipidemia, who presented to [facility] emergency department on the day of admission secondary to complaints of shortness of breath. [facility] ER evaluation was consistent with exacerbation of CHF, respiratory failure with hypoxemia/hypercapnia. Secondary to the above, the patient was admitted by Noe Whittaker M.D. for further evaluation and treatment. The patient is unable to give any history regarding presentation to [facility] emergency department today. Denies any history of recent shortness of breath, chest pain, palpitations, peripheral edema. She was unaware that she was transported via ambulance to [facility] emergency department. ER record not available at time of my H&P. Previous history of dementia. PAST MEDICAL HISTORY Illnesses: 1. CHF 2. Diabetes mellitus-type II 3. Hypertension 4. Chronic kidney disease-status post renal transplant 5. Dementia 6. Hyperlipidemia 7. Renal artery stenosis Allergies: 1. Penicillin Medications: 1. Xanax 0.5 mg by mouth 3 times a day when necessary anxiety 2. Aspirin 81 mg by mouth daily 3. Azathioprine 75 mg by mouth daily 4. Coreg 6.25 mg by mouth twice a day 5. Vicodin 5/325 one by mouth 4 times a day when necessary pain 6. Lisinopril 5 mg by mouth daily 7. Pravastatin 10 mg by mouth daily at bedtime 8. Prednisone 5 mg by mouth daily 9. Tacrolimus 0.5 mg by mouth twice a day Surgery: 1. Appendectomy 2. Cholecystectomy 3. Renal transplantation 4. Mesenteric artery stenosis Injuries: 1. No significant Hospitalizations: 1. For above surgery and medical problems. FAMILY HISTORY Parents: 1. Father, Jony, , 70, prostate CA, 2. Mother, Idalia, , 70, diabetes mellitus Siblings: 1. Male, Noel, living, 64, healthy 2. Female, Xochitl, living, 62, diabetes mellitus, cancer-type unknown Children: 1. Male, Alvaro, living, 52, healthy 2. Female, Elizabeth Andrea, , 50, cancer type unknown Other significant family history: None SOCIAL HISTORY 1. Marital Status: , significant other-Alfrdeo Coughlin 2. Taoist: Mandaen-Spiritism 3. 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 Tobacco: 40 pack years, continues to smoke 4-5 cigarettes per day 2. Drugs: None 3. Alcohol: None 4. Caffeine: 1-2 cups coffee per day HEALTH SUPERVISION Item/Test 1. Not reviewed IMMUNIZATIONS: 1. Pneumococcal: 2017 (patient unsure) 2. Influenza: 2017 (patient unsure) 3. Tetanus: Unknown ADVANCED DIRECTIVES: 1. Living well: No 2. POLST: No 3. CODE STATUS: DNR/DNI 4. Durable Power Cushion Maker Hand Health care: No 5. Donor card: No REVIEW OF SYSTEMS Remarkable for those things stated in the history of present illness and past medical history. Seventeen point review of system completed with the following notable findings: Eyes: Decreased visual acuity requiring corrective lenses Cardiovascular: Patient denies history of chest pain, shortness of breath, palpitations, peripheral edema Physical Exam Vital Signs / I&Os Vital Signs Blood pressure: 159/76 Pulse: 86 Respirations: 16 Temperature: 98.4 Fahrenheit Pulse oximetry: 99% 3 L/m nasal cannula General Appearance Alert, Cooperative, No acute distress, lying flat in bed HEENT Atraumatic, PERRLA, EOMI, Moist mucous membranes Lungs Scattered rhonchi, basilar crackles present bilaterally-minimal Neck Supple, No JVD, Bilateral bruit versus transmitted cardiac murmur Cardiovascular Regular rate and rhythm, Normal S1 and S2, grade 1-2/6 systolic murmur present Abdomen Normal bowel sounds, Soft, No tenderness, No guarding, No rebound Extremities No cyanosis, No clubbing, No edema Neurological Cranial nerves intact, Strength 5/5 x4 ext's, No lateralizing signs Psych/Mental Status Mood normal, Confused LAB Results Laboratory Tests 03/18 03/11/01 Blood Gas Sample Site RR Total CO2 (24.0 - 30.0 mmol/L) 26.6 ABG pH (7.35 - 7.45) 7.27 ABG pCO2 at Pt Temp (35 - 45 mmHg) 54.7 ABG pO2 at Pt Temp (60.0 - 80.0 mmHg) 137.0 ABG HCO3 (20.0 - 26.0 mmol/L) 25.0 ABG O2 Sat Calc/Lisa (95.1 - 100.0 %) 99.2 ABG Base Excess (-6.0 - -6.0 mmol/L) -2.1 ABG Reduced Hgb (%) 0.8 ABG Carboxyhemoglobin (0.5 - 1.5 %) 3.1 ABG Methemoglobin (0.4 - 1.5 %) 0.1 Saeid Test YES Other Total Hgb (12.0 - 16.0 g/dL) 12.3 A-a O2 Gradient (7.0 - 14.0 mmHg) 123.2 Hgb O2 Saturation (95.0 - 100.0 %) 96.0 Respiration Rate (/MIN) 20 Vent Mode CPAP FiO2 (20 - 101 %) 45 Chemistry Lactic Acid (0.4 - 2.0 mmol/L) 1.3 Procalcitonin (0 - 0.5 ng/mL) <0.5 Urines Urine Color YELLOW Urine Appearance CLEAR Urine pH (5.0 - 8.0) 6.0 Ur Specific [place] (1.010 - 1.030) 1.015 Urine Protein (NEGATIVE) NEGATIVE Urine Ketones (NEGATIVE) NEGATIVE Urine Blood (NEGATIVE) NEGATIVE Urine Nitrite (NEGATIVE) NEGATIVE Urine Bilirubin (NEGATIVE) NEGATIVE Urine Urobilinogen (0.2 - 1.0 EU/dL) 0.2 Ur Leukocyte Esterase (NEGATIVE) NEGATIVE Urine RBC (0 - 1 rbc/hpf) 0-1 Urine WBC (0 - 1 wbc/hpf) 0-1 Ur Epithelial Cells (0 - 5 EPI/hpf) 0-1 Urine Bacteria (NONE SEEN) NONE SEEN Urine Glucose (NEGATIVE) NEGATIVE Urine Comment CULT NOT INDICATED 11/01 Chemistry Plasma Sodium (136 - 145 mmol/L) 134 Plasma Potassium (3.5 - 5.1 mmol/L) 5.1 Plasma Chloride (98 - 107 mmol/L) 103 CO2 (Enzymatic) (21 - 32 mmol/L) 24 BUN (7 - 18 mg/dL) 33 Creatinine (0.6 - 1.3 mg/dL) 1.5 Est GFR ( Amer) (mL/min) 43.85 Est GFR (Non-Af Amer) (mL/min) 36.18 Glucose (70 - 110 mg/dL) 303 Plasma Calcium (8.5 - 10.1 mg/dL) 8.7 Plasma Magnesium (1.8 - 2.4 mg/dL) 2.0 Total Bilirubin (0.0 - 1.0 mg/dL) 0.3 AST (15 - 37 U/L) 16 ALT (12 - 78 U/L) 17 Alkaline Phosphatase (46 - 116 U/L) 72 Creatine Kinase (24 - 260 U/L) 71 Troponin (0.00 - 1.5 ng/mL) <0.05 B-Natriuretic Peptide (5 - 100 pg/ml) 1760 Total Protein (6.4 - 8.2 g/dL) 7.6 Albumin (3.3 - 5.0 g/dL) 3.8 Coagulation D-Dimer, Quantitative (0.27 - 0.52 ug/mLFEU) 3.37 Hematology WBC (4.5 - 11.5 K/uL) 17.8 RBC (4.00 - 5.20 M/uL) 4.00 Hgb (12.0 - 16.0 gm/dL) 12.6 Hct (36.0 - 46.0 %) 38.4 MCV (80 - 100 fL) 96 MCH (26 - 34 pg) 32 RDW (11.6 - 14.8 %) 14.2 Neut % (Auto) (50 - 75 %) 68.3 Lymph % (Auto) (25 - 40 %) 26.5 [place] % (Auto) (3 - 14 %) 4.5 Eos % (Auto) (0 - 4 %) 0.4 Baso % (Auto) (0 - 2 %) 0.3 Plt Count, EDTA (150 - 400 K/uL) 278 PUBS MCHC (31 - 37 g/dL) 33 Imaging Chest X-Ray IMPRESSION: 1. Findings suggestive of mild CHF/fluid overload Dictated by: BERNARD DHALIWAL MD D: MIGUEL;11/01/16 4344 Assessment and Plan Problem List 1. Congestive heart failure (CHF) Plan -Patient presents with history of fairly acute onset shortness of breath -Shortness of breath resolved at this time, patient lying flat in bed without shortness of breath -Emergency room findings suggestive of acute CHF -Patient denied chest pain at presentation and currently -EKG shows no acute ST-T wave changes -Chest x-ray suggest fluid overload/pulmonary congestion -Significant elevation of BNP at 1760 -Arterial blood gas suggestive of hypoxic/hypercarbic respiratory failure -Patient required short period of BiPAP therapy secondary to the above. -Atacand 4 mg by mouth twice a day, Lasix 40 mg IV twice a day, Coreg 6.25 mg by mouth 3 times a day, nitroglycerin paste 2 inches topically every 6 hours -Schedule echocardiogram. -Monitor serial troponin, EKG due to sudden onset of CHF -Patient should probably be scheduled for evaluation for coronary disease due to recurrent CHF hospitalizations -Low-salt diet -CHF education -Patient requests placement on DNR/DNI status, advanced care plan discussed with patient. 2. Diabetes mellitus type II, controlled Plan -Patient with history of diabetes mellitus -Check hemoglobin A1c -Monitor before meals and at bedtime blood sugar -Insulin sliding scale as needed 3. Hyperlipidemia Plan -Patient with history of hyperlipidemia -Continue Lipitor 20 mg by mouth daily -Check lipid profile -Low-cholesterol/low-fat diet 4. Renal insufficiency Plan -Patient with history of chronic kidney [id number], status post renal transplantation -Continue current immunosuppressive therapy -Monitor 5. Hypertension Status Chronic Onset Date Unknown Plan -Patient with history of hypertension -Blood pressure significantly elevated at time of admission, normalized at this time -Atacand, Coreg, nitroglycerin paste, Lasix -Monitor -Low-salt diet 6. Leukocytosis Status Acute Onset Date Unknown Plan -Patient with findings of leukocytosis -No clear findings of infectious process -Probably stress related -Monitor 7. Tobacco use disorder Plan -History of tobacco use disorder -Nicoderpriya prn -Smoking cessation education 8. Dementia Status Chronic Onset Date Unknown Plan -Pateint with history of dementia -Follow up and further workup per Dr. Lacy 9. Respiratory failure Plan -Patient with findings of hypoxic/hypercarbic respiratory failure -Chest x-ray suggestive of CHF -Patient shows findings of obstructive airway disease with hypercarbia -DuoNeb/albuterol treatment -Patient initially required BiPAP therapy had been weaned to nasal cannula O2 with normal O2 sats currently. -Monitor Current status: Critical, unstable Anticipated discharge date: Anticipated discharge in 3 days Anticipated discharge placement: Home Patient care time: Time spent in chart review, patient interview, physical exam, CPOE, and care documentation: 70 minutes Visit to patient today: 1 Complexity of care: High E&M Codes Admission: Inpt-High/25253
[2016-11-02] VITALS (16 sets, daily range): BP systolic 109–172; BP diastolic 64–101
--- NOTE | 2016-11-02 04:20 | Progress Note ---
Subjective General ADVANCED CARE PLAN The patient is a 71-year-old white female with a significant past medical history of chronic kidney disease status post renal transplantation, CHF, diabetes mellitus, hypertension, dementia, hyperlipidemia, who presented to [facility] emergency department on the day of admission secondary to complaints of shortness of breath. [facility] ER evaluation was consistent with exacerbation of CHF, respiratory failure with hypoxemia/hypercapnia. Secondary to the above, the patient was admitted by Noe Whittaker M.D. for further evaluation and treatment. For other history present illness, past medical history, family history, social history, review of systems, and admission physical examination please see the patient's history and physical examination and ER visit note in the patient's medical record. A discussion was undertaken with the patient regarding previous advance care arrangements/decisions. The following advanced directives were noted by the patient at the time of admission. ADVANCED DIRECTIVES: 1. Living well: No 2. POLST: No 3. CODE STATUS: DNR/DNI 4. Durable Power Feed Crusher Operator Health care: No 5. Donor card: No The patient has expressed interest in pursuing a DNR/DNI status during her hospitalization. The patient does not have DURABLE POWER OF REGIONAL COORDINATOR for healthcare, POLST form, or living well. She does not process a donor card. The patient's wishes were documented in the chart and orders regarding the patient's wishes entered into the [employer] CPOE system. The advanced care plan document was distributed to the patient to discuss with her family/significant other in a.m. Less than 30 minutes was spent in performing the above tasks and documentation of the patient's advanced care plan.
--- NOTE | 2016-11-02 04:20 | Progress Note ---
Subjective General ADVANCED CARE PLAN The patient is a 71-year-old white female with a significant past medical history of chronic kidney disease status post renal transplantation, CHF, diabetes mellitus, hypertension, dementia, hyperlipidemia, who presented to [facility] emergency department on the day of admission secondary to complaints of shortness of breath. [facility] ER evaluation was consistent with exacerbation of CHF, respiratory failure with hypoxemia/hypercapnia. Secondary to the above, the patient was admitted by Noe Whittaker M.D. for further evaluation and treatment. For other history present illness, past medical history, family history, social history, review of systems, and admission physical examination please see the patient's history and physical examination and ER visit note in the patient's medical record. A discussion was undertaken with the patient regarding previous advance care arrangements/decisions. The following advanced directives were noted by the patient at the time of admission. ADVANCED DIRECTIVES: 1. Living well: No 2. POLST: No 3. CODE STATUS: DNR/DNI 4. Durable Power Public Policy Mediator Health care: No 5. Donor card: No The patient has expressed interest in pursuing a DNR/DNI status during her hospitalization. The patient does not have DURABLE POWER OF COSTUME DRAPER for healthcare, POLST form, or living well. She does not process a donor card. The patient's wishes were documented in the chart and orders regarding the patient's wishes entered into the [employer] CPOE system. The advanced care plan document was distributed to the patient to discuss with her family/significant other in a.m. Less than 30 minutes was spent in performing the above tasks and documentation of the patient's advanced care plan.
[2016-11-02] MEDS ORDERED: ASPIRIN ADULT L81 M1 PO (11:17)
[2016-11-02] MEDS ORDERED: METFORMIN HCL500 MG PO (11:17)
--- NOTE | 2016-11-02 19:02 | Progress Note ---
Subjective General Pt seen and examined. No complaints overnight. Will follow up on echocardiogram Constitutional Malaise. Denies: Fever, Chills, Sweats, Weakness, Other. Eyes Denies: Pain, Vision Change, Conjunctival Inflammation, Eyelid Inflammation, Redness, Other. ENT Denies: Ear Pain, Ear Discharge, Nose Pain, Nasal Discharge, Nasal Congestion, Mouth Pain, Mouth Swelling, Throat Pain, Throat Swelling, Other. Respiratory SOB w/exertion. Denies: Cough, Dry, Wheezing, Hemoptysis, Pleuritic Pain, Sputum, Other. Cardiovascular Edema. Denies: Chest Pain, Palpitations, Orthopnea, PND, Light-headedness, Other. Gastrointestinal Denies: Nausea, Vomiting, Abdominal Pain, Diarrhea, Constipation, Melena, Hematochezia, Other. Genitourinary Denies: Dysuria, Frequency, Incontinence, Hematuria, Retention, Other. Musculoskeletal Denies: Neck Pain, Shoulder Pain, Arm Pain, Back Pain, Hand Pain, Leg Pain, Foot Pain, Other. Skin Denies: Rash, Lesions, Jaundice, Bruising, Other. Neurological Denies: Weakness, Numbness, Incoordination, Change in speech, Confusion, Seizures, Other. Physical Exam General Appearance Alert, Oriented X3, No acute distress HEENT Atraumatic, PERRLA, Moist mucous membranes Lungs Clear to auscultation Cardiovascular - irregularly irregular rhythm - no s3 noted Abdomen Soft, No tenderness Extremities No clubbing, No edema, Normal pulses Skin No Breakdown, No Significant Lesions Neurological Normal speech, Normal tone, Cranial nerves intact, No lateralizing signs Assessment and Plan Problem List 1. Congestive heart failure (CHF) Plan -Chest x-ray suggest fluid overload/pulmonary congestion -Significant elevation of BNP at 1760 -Arterial blood gas suggestive of hypoxic/hypercarbic respiratory failure -Atacand 4 mg by mouth twice a day, Lasix 40 mg IV twice a day, Coreg 6.25 mg by mouth 3 times a day, nitroglycerin paste 2 inches topically every 6 hours -Will await results of echocardiogram -troponins have been negative 2. Diabetes mellitus type II, controlled Plan -Monitor ACHS -Insulin sliding scale as needed 3. Renal insufficiency Plan - pt is s/p renal transplant - will c/w immunosuppressiv therapy - given active diuresis no anticipation in the patients rental function 4. Hypertension Status Chronic Onset Date Unknown Plan Patient with history of hypertension -Blood pressure significantly elevated at time of admission, normalized at this time -Atacand, Coreg, nitroglycerin paste, Lasix -Monitor -Low-salt diet 5. Leukocytosis Status Acute Onset Date Unknown 6. Dementia Status Chronic Onset Date Unknown Plan - establsihed history of dementia 7. Respiratory failure Plan -Patient with findings of hypoxic/hypercarbic respiratory failure -Chest x-ray suggestive of CHF -Patient shows findings of obstructive airway disease with hypercarbia -DuoNeb/albuterol treatment -pt was on bipap, but given improvement in respiratory function changed to nc @ 2 l
--- NOTE | 2016-11-02 22:12 | ED DISCHARGE INSTRUCTIONS ---
Patient: TONI SANTA General Instructions [facility] VisitID: [id number] [address] [place] [address] 71y, F Registration Date/Time: 11/01/2016 Acute CHF Acute respiratory failure Renal insufficeincy with kidney transplant. Hypoxia Diabetes with uncontrolled hyperglycemia. (Electronically signed by Yobany Ramirez MD 11/02/2016 22:11)
--- NOTE | 2016-11-02 22:12 | ED MAR SUMMARY ---
..... Medication Administration Record [facility] [address] [place] [address] Patient: TONI SANTA Visit ID: [id number] 71y, F Weight: 55.1 kg Height/Length: 63 in BMI: 21.5 ALLERGIES: PCN Given 21:06 11/01/2016 Sheriff Weiss R.N. Medication Administered: LOPRESSOR [IVP] (METOPROLOL TARTRATE), Dose: 5 mg IVP over 1 minute(s), Site: #1 right forearm. Medication Ordered: Lopressor IV 5 mg (HIGH ALERT MEDICATION, NOW). Given 21:07 11/01/2016 Sheriff Weiss R.N. Medication Administered: LASIX [IVP], Dose: 40 mg IVP over 2 minute(s), Site: #1 right forearm. Medication Ordered: Lasix IV 40 mg (NOW). Given 21:11/01/2016 Sheriff Weiss R.N. Medication Administered: NITROGLYCERIN PASTE [TOPICAL], Dose: 1 in. Paste Topical. Medication Ordered: NitroGLYCERIN Paste Topical 1 in. (NOW, to CW). Given 21:37 11/01/2016 Sheriff Weiss R.N. Medication Administered: HYDRALAZINE [IVP], Dose: 10 mg IVP over 30 second(s), Site: #1 right forearm. Medication Ordered: Hydralazine IV 10 mg (NOW). Given 22:17 11/01/2016 Sheriff Weiss R.N. Medication Administered: HEPARIN [IVP], Dose: 5000 unit IVP over 2 minute(s), Site: #1 right forearm. Medication Ordered: Heparin IV : initial bolus 5,000 units, then 800 units per hour for 4h (NOW); Routine. Given :11/01/2016 Sheriff Weiss R.N. Medication Administered: ALBUTEROL [NEB TX], Dose: 1 unit dose Neb TX. Medication Ordered: Albuterol Neb Tx 5 mg (HHN). Given 23:11/01/2016 Sheriff Weiss R.N. Medication Administered: HYDRALAZINE [IVP], Dose: 5 mg IVP over 30 second(s), Site: #1 right forearm. Medication Ordered: Hydralazine IV 5 mg IV (NOW).
--- NOTE | 2016-11-02 22:12 | ED DISCHARGE INSTRUCTIONS ---
Patient: TONI SANTA General Instructions [facility] VisitID: [id number] [address] [place] [address] 71y, F Registration Date/Time: 11/01/2016 Acute CHF Acute respiratory failure Renal insufficeincy with kidney transplant. Hypoxia Diabetes with uncontrolled hyperglycemia. (Electronically signed by Yobany Ramirez MD 11/02/2016 22:11)
--- NOTE | 2016-11-02 22:12 | ED MAR SUMMARY ---
..... Medication Administration Record [facility] [address] [place] [address] Patient: TONI SANTA Visit ID: [id number] 71y, F Weight: 55.1 kg Height/Length: 63 in BMI: 21.5 ALLERGIES: PCN Given 21:06 11/01/2016 Sheriff Weiss R.N. Medication Administered: LOPRESSOR [IVP] (METOPROLOL TARTRATE), Dose: 5 mg IVP over 1 minute(s), Site: #1 right forearm. Medication Ordered: Lopressor IV 5 mg (HIGH ALERT MEDICATION, NOW). Given 21:07 11/01/2016 Sheriff Weiss R.N. Medication Administered: LASIX [IVP], Dose: 40 mg IVP over 2 minute(s), Site: #1 right forearm. Medication Ordered: Lasix IV 40 mg (NOW). Given 21:11/01/2016 Sheriff Weiss R.N. Medication Administered: NITROGLYCERIN PASTE [TOPICAL], Dose: 1 in. Paste Topical. Medication Ordered: NitroGLYCERIN Paste Topical 1 in. (NOW, to CW). Given 21:37 11/01/2016 Sheriff Weiss R.N. Medication Administered: HYDRALAZINE [IVP], Dose: 10 mg IVP over 30 second(s), Site: #1 right forearm. Medication Ordered: Hydralazine IV 10 mg (NOW). Given 22:17 11/01/2016 Sheriff Weiss R.N. Medication Administered: HEPARIN [IVP], Dose: 5000 unit IVP over 2 minute(s), Site: #1 right forearm. Medication Ordered: Heparin IV : initial bolus 5,000 units, then 800 units per hour for 4h (NOW); Routine. Given :11/01/2016 Sheriff Weiss R.N. Medication Administered: ALBUTEROL [NEB TX], Dose: 1 unit dose Neb TX. Medication Ordered: Albuterol Neb Tx 5 mg (HHN). Given 23:11/01/2016 Sheriff Weiss R.N. Medication Administered: HYDRALAZINE [IVP], Dose: 5 mg IVP over 30 second(s), Site: #1 right forearm. Medication Ordered: Hydralazine IV 5 mg IV (NOW).
--- NOTE | 2016-11-02 22:12 | ED MED RECONCILIATION SUMMARY ---
Patient: TONI SANTA Medication Reconciliation Report [facility] VisitID: [id number] [address] [place] [address] 71y, F Registration Date/Time: 11/01/2016 Weight: 55.1 kg Height/Length: 63 in. BMI: 21.5 ALLERGIES: PCN The patient's Home Medications are listed below: THE FOLLOWING MEDICATIONS NEED TO BE RECONCILED: ALPRAZolam Oral 0.5 mg, 3x a day Aspirin Oral (81 mg) 1 tablet, daily AzaTHIOprine Oral (50 mg) 1-1/2 tablets, daily AzaTHIOprine Oral (75 mg), daily Carvedilol Phosphate ER Oral 6.25 mg Hydrocodone-Acetaminophen Oral 5 mg, 4x a day Lisinopril Oral 5 mg, daily Pravastatin Sodium Oral 10 mg, at bedtime PredniSONE Oral 5 mg, daily Tacrolimus Oral (0.5 mg) 1 capsule, BID The source(s) of the original Home Medication information: Not obtained. The following Medications were given to the patient in the Emergency Department: Lopressor [IVP] IVP 5 mg, administered: 11/01/2016 9:06:00 PM Lasix [IVP] IVP 40 mg, administered: 11/01/2016 9:07:00 PM NITROGLYCERIN PASTE [TOPICAL] Topical 1 in., administered: 11/01/2016 9:11:00 PM Hydralazine [IVP] IVP 10 mg, administered: 11/01/2016 9:37:00 PM Heparin [IVP] IVP 5000 unit, administered: 11/01/2016 10:17:00 PM Albuterol [Neb Tx] Neb TX 1 unit dose, administered: 11/01/2016 11:05:00 PM Hydralazine [IVP] IVP 5 mg, administered: 11/01/2016 11:20:00 PM The following Medications were prescribed to the patient: None.
--- NOTE | 2016-11-02 22:12 | ED MED RECONCILIATION SUMMARY ---
Patient: TONI SANTA Medication Reconciliation Report [facility] VisitID: [id number] [address] [place] [address] 71y, F Registration Date/Time: 11/01/2016 Weight: 55.1 kg Height/Length: 63 in. BMI: 21.5 ALLERGIES: PCN The patient's Home Medications are listed below: THE FOLLOWING MEDICATIONS NEED TO BE RECONCILED: ALPRAZolam Oral 0.5 mg, 3x a day Aspirin Oral (81 mg) 1 tablet, daily AzaTHIOprine Oral (50 mg) 1-1/2 tablets, daily AzaTHIOprine Oral (75 mg), daily Carvedilol Phosphate ER Oral 6.25 mg Hydrocodone-Acetaminophen Oral 5 mg, 4x a day Lisinopril Oral 5 mg, daily Pravastatin Sodium Oral 10 mg, at bedtime PredniSONE Oral 5 mg, daily Tacrolimus Oral (0.5 mg) 1 capsule, BID The source(s) of the original Home Medication information: Not obtained. The following Medications were given to the patient in the Emergency Department: Lopressor [IVP] IVP 5 mg, administered: 11/01/2016 9:06:00 PM Lasix [IVP] IVP 40 mg, administered: 11/01/2016 9:07:00 PM NITROGLYCERIN PASTE [TOPICAL] Topical 1 in., administered: 11/01/2016 9:11:00 PM Hydralazine [IVP] IVP 10 mg, administered: 11/01/2016 9:37:00 PM Heparin [IVP] IVP 5000 unit, administered: 11/01/2016 10:17:00 PM Albuterol [Neb Tx] Neb TX 1 unit dose, administered: 11/01/2016 11:05:00 PM Hydralazine [IVP] IVP 5 mg, administered: 11/01/2016 11:20:00 PM The following Medications were prescribed to the patient: None.
[2016-11-03 03:17] VITALS: BP 150/76
[2016-11-03 06:38] VITALS: BP 177/77
--- NOTE | 2016-11-03 07:28 | Progress Note ---
Subjective General PT REMEMBERS FALL AT HOME. BROUGHT TO ER WITH SOB. ADMITTED WITH CHF AND TREATED. FEELING BETTER NOW. NO SOB. NO PAIN. BRUISED ON L ELBOW FROM FALL. Constitutional Weakness. Denies: Fever, Chills, Sweats, Malaise. Eyes Denies: Pain, Vision Change, Conjunctival Inflammation, Eyelid Inflammation, Redness, Other. ENT Denies: Ear Pain, Ear Discharge, Nose Pain, Nasal Discharge, Nasal Congestion, Mouth Pain, Mouth Swelling, Throat Pain, Throat Swelling. Respiratory Denies: SOB w/exertion, Wheezing, Pleuritic Pain, Sputum. Gastrointestinal Denies: Nausea, Vomiting, Abdominal Pain, Diarrhea, Constipation, Melena, Hematochezia. Genitourinary Denies: Dysuria, Frequency, Incontinence, Hematuria, Retention. Musculoskeletal Denies: Neck Pain, Shoulder Pain, Arm Pain, Back Pain, Hand Pain, Leg Pain, Foot Pain, Other. Skin Bruising (L ARM). Denies: Rash, Lesions, Jaundice. Neurological Confusion (NOT GOOD MEMORY). Denies: Weakness, Numbness, Incoordination, Change in speech, Seizures. Physical Exam Vital Signs / I&Os Vital Signs Date Time Temp Pulse Resp B/P Pulse O2 O2 Flow FiO2 Ox Delivery Rate 11/03 0638 74 11/03 0638 97.5 73 21 177/77 98 Nasal 2.0 Cannula 11/03 0317 98.1 77 14 150/76 98 Nasal 2.0 Cannula 11/02 2233 98.1 73 14 156/74 98 Nasal 2.0 Cannula 11/02 2137 81 03 1940 2.0 11/02 1821 98.1 74 14 131/70 100 Nasal 2.0 Cannula 11/02 1455 79 03 1441 99.0 83 15 124/68 94 Nasal 2.0 Cannula 11/02 1338 98.2 76 13 109/66 98 Nasal 2.0 Cannula /19 1200 98.8 79 23 172/88 100 Nasal Cannula /19 1100 82 11 135/94 100 Nasal 2.0 Cannula /19 1000 99.0 78 31 134/72 100 Nasal 2.0 Cannula /19 0900 72 17 119/101 99 Nasal 2.0 Cannula / 0815 2.0 03 0800 Nasal 2.0 Cannula / 0800 98.8 87 16 123/68 93 Nasal 2.0 Cannula I&O 11/02 0800 11/02 1600 11/03 0000 Intake Total 40 697 Output Total 1700 300 550 Balance -1660 -300 147 General Appearance Alert, Oriented X3, Cooperative, No acute distress HEENT Normal exam, Atraumatic, PERRLA, EOMI, Moist mucous membranes Lungs Normal exam, Clear to auscultation Breasts Symmetric Neck Normal exam, Supple, No JVD, No masses, No thyromegaly, No lymphadenopathy Abdomen Normal exam, Normal bowel sounds, Soft, No tenderness, No guarding, No rebound Extremities Normal exam, No cyanosis, No clubbing, No edema, No tenderness, Strength = upper ext's Neurological Normal exam, Normal gait, Normal speech, Normal tone, Sensation intact, Strength 5/5 x4 ext's, No lateralizing signs Psych/Mental Status Mental status normal, Mood normal (POOR MEMORY OF EVENTS), Confused Assessment and Plan Problem List 1. Acute respiratory failure with hypoxemia Plan RESOLVED 2. Acute CHF Plan ECHOCARDIOGRAM TODAY. CONSIDER D/C. CONSIDER NONSTRESS NM SCAN 3. Hypertension Status Chronic Onset Date Unknown Plan ELEVATED ON ADMIT NOW CONTROLLED 4. Diabetes mellitus type II, controlled 5. Renal failure Plan CONTROLLED 6. Kidney transplant recipient
[2016-11-03] MEDS ORDERED: CARVEDILOL12.5 MG PO (08:14)
[2016-11-03] MEDS ORDERED: FUROSEMIDE40 MG PO (08:16)
--- NOTE | 2016-11-03 12:13 | Provider's Discharge Care Plan ---
Problem, Goal, Plan Problem List 1. Acute CHF Goals: No readmissions Instructions: Follow up as directed
--- NOTE | 2016-11-03 12:13 | Provider's Discharge Care Plan ---
Problem, Goal, Plan Problem List 1. Acute CHF Goals: No readmissions Instructions: Follow up as directed
--- NOTE | 2016-11-03 14:28 | DIAGNOSTIC IMAGING REPORT ---
REFERRING PHYSICIAN/PROVIDER: Noe Whittaker MD CONSULTING BEVEL GEAR GENERATOR OPERATOR: Umberto Campbell Jr MD INDICATION: CHF Procedure: A two-dimensional transthoracic echocardiogram with color flow and Doppler was performed. The study quality was technically adequate. The patient was in normal sinus rhythm during the exam. Left Ventricle: The left ventricle is normal in size. There is moderate concentric left ventricular hypertrophy. Left ventricular systolic function is normal without focal wall motion abnormalities. The ejection fraction is estimated to be 55-60%. Assessment of diastolic parameters indicates a relaxation abnormality of the left ventricle, consistent with normal filling pressures. Right Ventricle: The right ventricle is normal in size and function. Atria: The left atrium is moderately dilated. Right atrial size is normal. The interatrial septum is intact with no evidence for an atrial septal defect. Mitral Valve: The mitral valve leaflets appear mildly thickened, but open well. There is mild to moderate mitral regurgitation. Aortic Valve: The aortic valve is trileaflet. The aortic valve opens well. There is discrete nodular thickening of the non- coronary cusp. There is no aortic regurgitation. Tricuspid Valve: The tricuspid valve leaflets are thin and pliable. The right ventricular systolic pressure is estimated at 27 mmHg assuming a right atrial pressure of 3 mm Hg. Pulmonic Valve: The pulmonic valve is normal in structure and function. There is a trace or physiologic amount of pulmonic regurgitation. There is no other significant valvular heart disease. Great Vessels: The aortic root is normal size. The dimensions of the ascending aorta are normal. The IVC is of normal diameter and collapses greater than 50% with a sniff. This suggests a low right atrial pressure of 3 mm Hg. Pericardium/ Pleura There is no pericardial effusion. IMPRESSION: There is moderate concentric left ventricular hypertrophy. Left ventricular systolic function is normal without focal wall motion abnormalities. The ejection fraction is estimated to be 55-60%. Assessment of diastolic parameters indicates a relaxation abnormality of the left ventricle, consistent with normal filling pressures. The right ventricle is normal in size and function. The right ventricular systolic pressure is estimated at 27 mmHg assuming a right atrial pressure of 3 mm Hg. The left atrium is moderately dilated. Right atrial size is normal. There is mild to moderate mitral regurgitation. There is no other significant valvular heart disease. The aortic root is normal size.
--- NOTE | 2016-11-11 09:25 | DISCHARGE SUMMARY ---
ADMIT DATE: 11/02/2016 DISCHARGE DATE: 11/03/2016 ADMITTING DIAGNOSES: 1. Congestive heart failure 2. Type 2 diabetes mellitus, controlled 3. Hyperlipidemia 4. Renal insufficiency, status post renal transplant 5. Hypertension 6. Leukocytosis 7. Respiratory failure secondary to congestive heart failure DISCHARGE DIAGNOSES: 1. CHF BRIEF HISTORY: The patient has chronic medical conditions including chronic kidney disease, status post renal transplant, a history of congestive heart failure, controlled, well controlled diabetes, hypertension, hyperlipidemia. She was at home in her usual state of health when she became relatively suddenly short of breath, with an exacerbation of dyspnea. This worsened, and she became weak and almost passed out. She denied any chest pain, palpitations, or edema accompanying this, but did become disoriented , with relative hypoxia, and was transported to the emergency department for evaluation by the ambulance which was summoned. Evaluation in the emergency department did not reveal obvious cause for acute respiratory compromise. Chest x-ray did show mild pulmonary edema. This was substantiated with an elevated BNP up to 1760. Her white blood count also was elevated at 17,800, but the remainder of her blood tests were mostly unremarkable, other than the elevated D -dimer, which she has had in the past on her last presentation, similarly. Procalcitonin was negative. Lactic acid was normal. Other etiologies were unclear. HOSPITAL COURSE: The patient was admitted and had various testing done. The exact etiology of her respiratory attack was unclear. An echocardiogram prior to discharge showed good ejection fraction and was without valvular disease. Her diabetes was well controlled. Her oxygenation improved. She ruled out for OH. She continued to have good recovery. Her leukocytosis resolved, and her blood pressure, which was elevated on admission, was well controlled. DISCHARGE INSTRUCTIONS/MEDICATIONS: Disposition: The patient was discharged to home. She was to return for followup at the [facility] in 3-5 days. Her medications were to continue, with baby aspirin 1 daily, azathioprine 75 mg daily. Carvedilol 12.5 mg twice daily. Furosemide 20 mg every morning. Prednisone 5 mg daily. Tacrolimus 1 mg twice daily. Aspirin, Vicodin, metformin and alprazolam was discontinued, at least until further review when the patient returns to the clinic as an outpatient. Condition at discharge was good. She was ambulatory, alert, and without any discomfort or distress.
== END 2016-11-03 12:25 | disposition home or self-care (01) | DRG 291 ==
LOC: ED SRH 20:28 → TRANS SRH 22:52 → ACUTE2 SRH 11-02 01:15 → CC SRH 11-02 01:15 → 1ST SRH 11-03 05:57 → ACUTE2 SRH 11-03 05:58
PROVIDERS: ADMIT Family Medicine
PROC: 5A09357 Assistance with Respiratory Ventilation, Less than 24 Consecutive Hours, Continuous Positive Airway Pressure (ICD-10-PCS; principal; 2016-11-01)
DX: I13.0 Hypertensive heart and chronic kidney disease with heart failure and stage 1 through stage 4 chronic kidney disease, or unspecified chronic kidney disease (principal); I50.9 Heart failure, unspecified; N18.9 Chronic kidney disease, unspecified; J96.02 Acute respiratory failure with hypercapnia; J96.01 Acute respiratory failure with hypoxia; Z94.0 Kidney transplant status; E11.65 Type 2 diabetes mellitus with hyperglycemia; E11.22 Type 2 diabetes mellitus with diabetic chronic kidney disease; E78.5 Hyperlipidemia, unspecified; F03.90 Unspecified dementia, unspecified severity, without behavioral disturbance, psychotic disturbance, mood disturbance, and anxiety; F17.210 Nicotine dependence, cigarettes, uncomplicated

== ENCOUNTER 2017-01-06 14:54 | Emergency (ER) | payer OTHER ==
[~2017-01-06 14:54] MED LIST changes: +ASPIRIN ADULT L81 M1 PO; +ATIVAN0.5 MG PO; +CARVEDILOL12.5 MG PO; +FUROSEMIDE40 MG PO
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
--- NOTE | 2017-01-06 16:21 | ED ORDER SUMMARY ---
..... Patient: TONI SANTA OrderSheet [facility] VisitID: [id number] [address] [place] [address] 71y, F Registration Date/Time: 01/06/2017 ORDER SHEET Weight: 53.5 kg (stated) Allergies: PCN GENERAL ORDERS: CT Head wo Cont Urgent (15:08 01/06/2017 Santiago BOLTON) (Ack 15:11 NHouse ER Tech1) (15:27 PWeiler ER Tech1) CT Cervical Spine wo Cont Urgent (15:08 01/06/2017 Santiago BOLTON) (Ack 15:11 NHouse ER Tech1) (15:27 PWeiler ER Tech1) Cardiac Panel Stat (15:01/06/2017 Santaigo BOLTON) (Ack 15:11 NHouse ER Tech1) (15:33 MWinterer R.N.) Pulse oximeter (15:11 01/06/2017 Santiago BOLTON) (15:11 NHouse ER Tech1) EKG - ER Stat (15:01/06/2017 Santiago BOLTON) (15:11 ConjuGonouse ER Tech1) MEDICATION ORDERS: IV FLUIDS: IV NS : initial bolus 500 mL (1000 mL/hr), then none - (NOW) (15:10 01/06/2017 Santiago BOLTON) (Ack 15:33 MWinterer R.N.) (15:51 MWinterer R.N.) ORDER SHEET NOTES: [Electronically signed by Tonie Eastman R.N. (16:47 01/06/2017)] [Electronically signed by Gianna Palacios MD (05:36 01/08/2017)] [Electronically locked/signed by Tonie Eastman R.N. (16:47 01/06/2017)]
--- NOTE | 2017-01-06 16:21 | ED ORDER SUMMARY ---
..... Patient: TONI SANTA OrderSheet [facility] VisitID: [id number] [address] [place] [address] 71y, F Registration Date/Time: 01/06/2017 ORDER SHEET Weight: 53.5 kg (stated) Allergies: PCN GENERAL ORDERS: CT Head wo Cont Urgent (15:08 01/06/2017 Santiago BOLTON) (Ack 15:11 NHouse ER Tech1) (15:27 PWeiler ER Tech1) CT Cervical Spine wo Cont Urgent (15:08 01/06/2017 Santiago BOLTON) (Ack 15:11 NHouse ER Tech1) (15:27 PWeiler ER Tech1) Cardiac Panel Stat (15:01/06/2017 Santiago BOLTON) (Ack 15:11 NHouse ER Tech1) (15:33 MWinterer R.N.) Pulse oximeter (15:11 01/06/2017 Santiago BOLTON) (15:11 NHouse ER Tech1) EKG - ER Stat (15:01/06/2017 Santiago BOLTON) (15:11 LucidEraouse ER Tech1) MEDICATION ORDERS: IV FLUIDS: IV NS : initial bolus 500 mL (1000 mL/hr), then none - (NOW) (15:10 01/06/2017 Santiago BOLTON) (Ack 15:33 MWinterer R.N.) (15:51 MWinterer R.N.) ORDER SHEET NOTES: [Electronically signed by Tonie Eastman R.N. (16:47 01/06/2017)] [Electronically signed by Gianna Palacios MD (05:36 01/08/2017)] [Electronically locked/signed by Tonie Eastman R.N. (16:47 01/06/2017)]
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
--- NOTE | 2017-01-08 05:37 | ED MAR SUMMARY ---
..... Medication Administration Record [facility] [address] [place] [place] [address] Patient: TONI SANTA Visit ID: [id number] 71y, F Weight: 53.5 kg Height/Length: 62 in BMI: 21.6 ALLERGIES: PCN Start 15:51 01/06/2017 Tonie Eastman R.N., Stop 16:22 01/06/2017 Tonie Eastman R.N. Medication Administered: IV NS (SALINE), Dose: IV Fluids over 30 minute(s), Rate: 999 mL/hr, Dispensed: 500 mL bag, Site: #1 right AC. Medication Ordered: IV NS : initial bolus 500 mL (1000 mL/hr), then none - (NOW).
--- NOTE | 2017-01-08 05:37 | ED MED RECONCILIATION SUMMARY ---
Patient: TONI SANTA Medication Reconciliation Report [facility] VisitID: [id number] [address] [place] [address] 71y, F Registration Date/Time: 01/06/2017 Weight: 53.5 kg Height/Length: 62 in. BMI: 21.6 ALLERGIES: PCN The patient's Home Medications are listed below: CONTINUE TAKING THE FOLLOWING MEDICATIONS: ALPRAZolam Oral 0.5 mg, 3x a day Aspirin Oral (81 mg) 1 tablet, daily AzaTHIOprine Oral (50 mg) 1-1/2 tablets, daily AzaTHIOprine Oral (75 mg), daily Carvedilol Phosphate ER Oral 6.25 mg Hydrocodone-Acetaminophen Oral 5 mg, 4x a day Lisinopril Oral 5 mg, daily Pravastatin Sodium Oral 10 mg, at bedtime PredniSONE Oral 5 mg, daily Tacrolimus Oral (0.5 mg) 1 capsule, BID The source(s) of the original Home Medication information: list from October 2016 The following Medications were given to the patient in the Emergency Department: IV NS IV Fluids bolus 0, then 999 mL/hr, administered: 01/06/2017 3:51:00 PM The following Medications were prescribed to the patient: None.
--- NOTE | 2017-01-08 05:37 | ED MED RECONCILIATION SUMMARY ---
Patient: TONI SANTA Medication Reconciliation Report [facility] VisitID: [id number] [address] [place] [address] 71y, F Registration Date/Time: 01/06/2017 Weight: 53.5 kg Height/Length: 62 in. BMI: 21.6 ALLERGIES: PCN The patient's Home Medications are listed below: CONTINUE TAKING THE FOLLOWING MEDICATIONS: ALPRAZolam Oral 0.5 mg, 3x a day Aspirin Oral (81 mg) 1 tablet, daily AzaTHIOprine Oral (50 mg) 1-1/2 tablets, daily AzaTHIOprine Oral (75 mg), daily Carvedilol Phosphate ER Oral 6.25 mg Hydrocodone-Acetaminophen Oral 5 mg, 4x a day Lisinopril Oral 5 mg, daily Pravastatin Sodium Oral 10 mg, at bedtime PredniSONE Oral 5 mg, daily Tacrolimus Oral (0.5 mg) 1 capsule, BID The source(s) of the original Home Medication information: list from October 2016 The following Medications were given to the patient in the Emergency Department: IV NS IV Fluids bolus 0, then 999 mL/hr, administered: 01/06/2017 3:51:00 PM The following Medications were prescribed to the patient: None.
--- NOTE | 2017-01-08 05:37 | ED MAR SUMMARY ---
..... Medication Administration Record [facility] [address] [place] [address] Patient: TONI SANTA Visit ID: [id number] 71y, F Weight: 53.5 kg Height/Length: 62 in BMI: 21.6 ALLERGIES: PCN Start 15:51 01/06/2017 Tonie Eastman R.N., Stop 16:22 01/06/2017 Tonie Eastman R.N. Medication Administered: IV NS (SALINE), Dose: IV Fluids over 30 minute(s), Rate: 999 mL/hr, Dispensed: 500 mL bag, Site: #1 right AC. Medication Ordered: IV NS : initial bolus 500 mL (1000 mL/hr), then none - (NOW).
== END 2017-01-06 16:30 | disposition home or self-care (01) ==
LOC: ED SRH 14:54
DX: R55 Syncope and collapse (principal); V47.5XXA Car driver injured in collision with fixed or stationary object in traffic accident, initial encounter; Y93.9 Activity, unspecified; Y99.8 Other external cause status; Y92.411 Interstate highway as the place of occurrence of the external cause; I11.0 Hypertensive heart disease with heart failure; I50.9 Heart failure, unspecified; E11.59 Type 2 diabetes mellitus with other circulatory complications; F17.200 Nicotine dependence, unspecified, uncomplicated; Z79.82 Long term (current) use of aspirin
CPT/HCPCS: 90100; 90616; 92610; 92720; 95059